=== PATIENT | male | born 1935 | race Caucasian/White ===

== ENCOUNTER → 2017-04-10 | Outpatient (CLI) | payer MEDICARE ==
[2017-04-10 08:41] LABS: ALT 26 U/L (21-72); AST 23 U/L (17-59); Alkaline Phosphatase 40 U/L (38-126); Anion Gap 9 mmol/L; Blood Urea Nitrogen 30 mg/dL (9-20); Carbon Dioxide 24 mmol/L (22-30); Chloride 105 mmol/L (98-107); Glucose 112 mg/dL (74-99); Non-African American GFR(MDRD) 50 (>60 ml/min/1.73 sqM); Potassium 4.6 mmol/L (3.5-5.1); Sodium 138 mmol/L (137-145); Total Bilirubin 0.6 mg/dL (0.2-1.3); Total Protein 6.9 g/dL (6.3-8.2)
[2017-04-10 08:44] LABS: Basophils # (A) 0.1 k/uL (0-0.2); Basophils % (A) 1 %; CH 34.3; CHCM 34.8; Eosinophils # (A) 0.1 k/uL (0-0.7); Eosinophils % (A) 1 %; HCT 35.8 % (39.0-53.0); HDW 2.36; HGB 12.4 gm/dL (13.0-17.5); Luc # (Auto) 0.21; Luc % (Auto) 4; Lymphocytes # (A) 1.3 k/uL (1.0-4.8); Lymphocytes % (A) 27 %; MCH 34.4 pg (25.0-35.0); MCHC 34.7 g/dL (31.0-37.0); MCV 99.1 fL (80.0-100.0); Monocytes # (A) 0.5 k/uL (0-1.0); Monocytes % (A) 9 %; Neutrophils # (A) 2.9 k/uL (1.3-7.7); Neutrophils % (A) 58 %; RBC 3.61 m/uL (4.30-5.90); RDW 14.5 % (11.5-15.5); WBC (Perox) 5.04
== END | disposition home or self-care (01) ==
LOC: LABWHC1 07:46
PROVIDERS: ATTEND Psychiatry & Neurology Neurology
DX: D32.1 Benign neoplasm of spinal meninges (principal); E78.5 Hyperlipidemia, unspecified; G70.00 Myasthenia gravis without (acute) exacerbation; I10 Essential (primary) hypertension
CPT/HCPCS: 36415; 80053; 85025

== ENCOUNTER → 2017-04-22 | Outpatient (CLI) | payer MEDICARE ==
--- NOTE | 2017-04-22 19:37 | MR ---
Thoracic spine MRI with and without contrast HISTORY: Back pain, difficulty walking Multiplanar multisequence and postcontrast images through the thoracic spine following 20 cc MultiHan ce IV Correlation CT chest 12 February 2010 Thoracic vertebral bodies show preserved height, alignment. There is multilevel spondylosis with mini mal endplate discogenic marrow signal change, loss of disc height and signal at the intervertebral le vels is predominantly within the midthoracic spine. Hemangioma is present within the second thoracic vertebral body. Degenerative disc changes also noted in the cervical spine. Thoracic cord signal is i ncreased and T2-weighted sequences at the T10 level. T10-11 shows hypertrophic change of the facets with resulting in lateral recess encroachment, moderat e to severe central canal stenosis. Bilateral foraminal encroachment is present. No evident disc ronny iation. T9-T10 show some mild facet arthropathy encroaching on the right lateral recess. No significant centr al stenosis. T11-12 shows hypertrophic change of the facets causing some mass effect in the posterior lateral aspe ct of the thecal sac greater on the right. No other significant central canal stenosis or foraminal encroachment, no sizable disc herniation. 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 There is mod erate to severe canal stenosis.
== END | disposition home or self-care (01) ==
LOC: RADMRIMAIN 17:40
PROVIDERS: ATTEND Psychiatry & Neurology Neurology
DX: M48.04 Spinal stenosis, thoracic region (principal); G70.00 Myasthenia gravis without (acute) exacerbation; G95.9 Disease of spinal cord, unspecified; I10 Essential (primary) hypertension; G51.0 Bell's palsy; E78.5 Hyperlipidemia, unspecified
CPT/HCPCS: 72157; A9577

== ENCOUNTER 2021-01-18 22:35 | Observation (INO) | payer MEDICARE ==
[2021-01-18 22:47] LABS: Glucose,Whole Blood 198 mg/dL (75-99)
[2021-01-18] MEDS ORDERED: SODIUM CHLORIDE 0.9% 500 ML 500 ML IV STA ×2 (22:59→23:57)
[2021-01-18 23:37] LABS: Basophils % (A) 0 %; Eosinophils % (A) 0 %; HGB 12.9 gm/dL (13.0-17.5); Lymphocytes # (A) 0.8 k/uL (1.0-4.8); Lymphocytes % (A) 5 %; MCH 32.7 pg (25.0-35.0); MCHC 33.2 g/dL (31.0-37.0); MCV 98.5 fL (80.0-100.0); Mean Platelet Volume 7.6; Monocytes # (A) 0.6 k/uL (0-1.0); Monocytes % (A) 4 %; Neutrophils % (A) 90 %; Platelet Count 248 k/uL (150-450); RBC 3.96 m/uL (4.30-5.90); RDW 13.3 % (11.5-15.5); WBC 15.6 k/uL (3.8-10.6)
[2021-01-18 23:49] LABS: ALT 22 U/L (4-49); AST 27 U/L (17-59); African American GFR (CKD) 23 (>60 ml/min/1.73 sqM); Albumin 4.4 g/dL (3.5-5.0); Alcohol <10 mg/dL; Alkaline Phosphatase 68 U/L (38-126); Anion Gap 12 mmol/L; Blood Urea Nitrogen 42 mg/dL (9-20); Calcium 9.5 mg/dL (8.4-10.2); Carbon Dioxide 20 mmol/L (22-30); Chloride 104 mmol/L (98-107); Glucose 187 mg/dL (74-99); Non-African American GFR(CKD) 20 (>60 ml/min/1.73 sqM); Potassium 4.7 mmol/L (3.5-5.1); Sodium 136 mmol/L (137-145); Total Bilirubin 0.4 mg/dL (0.2-1.3); Total Protein 7.7 g/dL (6.3-8.2)
--- NOTE | 2021-01-18 23:49 | ED ---
Seizure HPI - General Chief Complaint: Seizure Stated Complaint: Seizures Time Seen by Provider: 01/18/21 22:37 Source: patient Mode of arrival: ambulatory Limitations: altered mental status - History of Present Illness Initial Comments: This patient is an 85-year-old man brought to have evaluation for suspected seizure. The patient is not able to give any history on arrival, though he is conscious. Patient's son and report that he has been having episodes like this going back possibly up to 3 months. Tonight they report that he had gone to use the bathroom and then while sitting on the commode he had become unresponsive. He did not fall or have any trauma. They state that afterwards he is not able to communicate for a period of time. His initial workup for this problem was at [facility]. They do report that he is scheduled to have MRI through [facility] January 22. Patient is able to answer some simple yes or no questions. He is not having any pain or dyspnea. MD Complaint: seizure -: minutes(s) Description of Episode: loss of consciousness, post-event confusion -: second(s) Witnessed: yes - by bystander Trauma: No Seizure History: known seizure disorder Place: home Possible Precipitating Event: none Associated Symptoms: denies other symptoms Treatments Prior to Arrival: none - Related Data Home Medications Medication Instructions Recorded Confirmed Donepezil [Aricept] 10 mg PO HS 01/19/21 01/19/21 Pyridostigmine [Mestinon] 30 mg PO TID 01/19/21 01/19/21 QUEtiapine [SEROquel] 50 mg PO HS 01/19/21 01/19/21 Triamterene-Hctz 37.5-25Mg 1 tab PO DAILY 01/19/21 01/19/21 [Maxzide 37.5-25] amLODIPine [Norvasc] 5 mg PO BID 01/19/21 01/19/21 azaTHIOprine [Imuran] 50 mg PO BID 01/19/21 01/19/21 Previous Rx's Medication Instructions Recorded Acetaminophen Tab [Tylenol] 650 mg PO Q6HR PRN tab 01/22/21 levETIRAcetam [Keppra] 500 mg PO Q12HR #60 tab 01/22/21 Allergies Allergy/AdvReac Type Severity Reaction Status Date / Time No Known Allergies Allergy Verified 01/19/21 08:56 Review of Systems ROS Statement: Those systems with pertinent positive or pertinent negative responses have been documented in the HPI. ROS Other: All systems not noted in ROS Statement are negative. 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 Absent: scleral icterus, conjunctival injection, nystagmus ENT exam: Present: mucous membranes dry Neck exam: Present: normal inspection, full ROM. Absent: tenderness, meningismus Respiratory exam: Present: normal lung sounds bilaterally. Absent: respiratory distress, wheezes, rales, rhonchi, stridor Cardiovascular Exam: Present: regular rate, normal rhythm, normal heart sounds. Absent: systolic murmur, diastolic murmur, rubs, gallop GI/Abdominal exam: Present: soft. Absent: distended, tenderness, guarding, rebound, rigid, mass Extremities exam: Present: normal inspection, normal capillary refill. Absent: pedal edema, calf tenderness Back exam: Present: normal inspection. Absent: CVA tenderness (R), CVA tenderness (L) Neurological exam: Present: alert, CN II-XII intact, other (Patient initially is alert but oriented only to person. He is able to follow very simple commands and answer yes no questions. The exam at this point consistent with post ictal state. No focal motor or sensory deficit.). Absent: oriented X3, motor sensory deficit Skin exam: Present: warm, dry, intact, normal color. Absent: rash Course Vital Signs 01/18/21 01/18/21 01/19/21 22:52 23:55 01:50 Temperature 97.4 F L 98.2 F Pulse Rate 70 68 Respiratory 18 16 Rate Blood Pressure 99/70 98/80 129/79 O2 Sat by Pulse 98 98 Oximetry 01/19/21 02:30 Temperature 98.0 F Pulse Rate 67 Respiratory 16 Rate Blood Pressure 126/81 O2 Sat by Pulse 97 Oximetry Medical Decision Making - Medical Decision Making Patient is an 85-year-old man brought for having suspected seizure at home. On arrival he does appear to be post ictal. When I did return to discuss the lab findings, the patient is alert and able to communicate. Case is discussed with Dr. Sexton, who is covering for the group [facility] and will admit. The patient is given fluids and antibiotics, and we did want to check catheterized urine specimen, the patient was refusing this. - Lab Data Result diagrams: 01/22/21 05:49 01/22/21 05:49 Lab Results 01/18/21 01/18/21 01/18/21 Range/Units 22:46 23:21 23:21 WBC 15.6 H (3.8-10.6) k/uL RBC 3.96 L (4.30-5.90) m/uL Hgb 12.9 L (13.0-17.5) gm/dL Hct 39.0 (39.0-53.0) % MCV 98.5 (80.0-100.0) fL MCH 32.7 (25.0-35.0) pg MCHC 33.2 (31.0-37.0) g/dL RDW 13.3 (11.5-15.5) % Plt Count 248 (150-450) k/uL Plt Count Comment MPV 7.6 Immature Gran % (Auto) % Absolute Nucleated RBC (0.00-0.00) X 10*3/uL Neutrophils % 90 % Lymphocytes % 5 % Monocytes % 4 % Eosinophils % 0 % Basophils % 0 % Immature Gran # (0.00-0.04) X 10*3/uL Neutrophils # 14.0 H (1.3-7.7) k/uL Lymphocytes # 0.8 L (1.0-4.8) k/uL Monocytes # 0.6 (0-1.0) k/uL Eosinophils # 0.0 (0-0.7) k/uL Basophils # 0.0 (0-0.2) k/uL NRBC/100 WBC Diff (0.0-0.0) /100 WBCS RBC Morphology Sodium 136 L (137-145) mmol/L Potassium 4.7 (3.5-5.1) mmol/L Chloride 104 (98-107) mmol/L Carbon Dioxide 20 L (22-30) mmol/L Anion Gap 12 mmol/L BUN 42 H (9-20) mg/dL Creatinine 2.79 H (0.66-1.25) mg/dL Est GFR (CKD-EPI)AfAm 23 (>60 ml/min/1.73 sqM) Est GFR (CKD-EPI)NonAf 20 (>60 ml/min/1.73 sqM) BUN/Creatinine Ratio (12.00-20.00) Ratio Glucose 187 H (74-99) mg/dL POC Glucose (mg/dL) 198 H (75-99) mg/dL POC Glu Group Therapy Counselor ID [place] Lactic Ac Sepsis Rflx Plasma Lactic Acid Fredi (0.7-2.0) mmol/L Calcium 9.5 (8.4-10.2) mg/dL Magnesium (1.6-2.3) mg/dL Total Bilirubin 0.4 (0.2-1.3) mg/dL AST 27 (17-59) U/L ALT 22 (4-49) U/L Alkaline Phosphatase 68 (38-126) U/L Creatine Kinase (55-170) U/L Troponin I (0.000-0.034) ng/mL Total Protein 7.7 (6.3-8.2) g/dL Albumin 4.4 (3.5-5.0) g/dL Globulin g/dL Albumin/Globulin Ratio Vitamin B12 (200.0-944.0) pg/mL RBC Folate (280 - 791) ng/mL TSH (0.465-4.680) mIU/L Urine Color Urine Appearance (Clear) Urine pH (5.0-8.0) Ur Specific [place] (1.001-1.035) Urine Protein (Negative) Urine Glucose (UA) (Negative) Urine Ketones (Negative) Urine Blood (Negative) Urine Nitrite (Negative) Urine Bilirubin (Negative) Urine Urobilinogen (<2.0) mg/dL Ur Leukocyte Esterase (Negative) Urine RBC (0-5) /hpf Urine WBC (0-5) /hpf Ur Squamous Epith Cells (0-4) /hpf Urine Bacteria (None) /hpf Urine Mucus (None) /hpf Random Vancomycin ug/mL Serum Alcohol <10 mg/dL Coronavirus (PCR) (Not Detectd) 02/18/21 02/18/21 02/18/21 Range/Units 23:21 23:21 23:57 WBC (3.8-10.6) k/uL RBC (4.30-5.90) m/uL Hgb (13.0-17.5) gm/dL Hct (39.0-53.0) % MCV (80.0-100.0) fL MCH (25.0-35.0) pg MCHC (31.0-37.0) g/dL RDW (11.5-15.5) % Plt Count (150-450) k/uL Plt Count Comment MPV Immature Gran % (Auto) % Absolute Nucleated RBC (0.00-0.00) X 10*3/uL Neutrophils % % Lymphocytes % % Monocytes % % Eosinophils % % Basophils % % Immature Gran # (0.00-0.04) X 10*3/uL Neutrophils # (1.3-7.7) k/uL Lymphocytes # (1.0-4.8) k/uL Monocytes # (0-1.0) k/uL Eosinophils # (0-0.7) k/uL Basophils # (0-0.2) k/uL NRBC/100 WBC Diff (0.0-0.0) /100 WBCS RBC Morphology Sodium (137-145) mmol/L Potassium (3.5-5.1) mmol/L Chloride (98-107) mmol/L Carbon Dioxide (22-30) mmol/L Anion Gap mmol/L BUN (9-20) mg/dL Creatinine (0.66-1.25) mg/dL Est GFR (CKD-EPI)AfAm (>60 ml/min/1.73 sqM) Est GFR (CKD-EPI)NonAf (>60 ml/min/1.73 sqM) BUN/Creatinine Ratio (12.00-20.00) Ratio Glucose (74-99) mg/dL POC Glucose (mg/dL) (75-99) mg/dL POC Glu Group Therapy Counselor ID Lactic Ac Sepsis Rflx Y Plasma Lactic Acid Fredi 4.0 H* (0.7-2.0) mmol/L Calcium (8.4-10.2) mg/dL Magnesium (1.6-2.3) mg/dL Total Bilirubin (0.2-1.3) mg/dL AST (17-59) U/L ALT (4-49) U/L Alkaline Phosphatase (38-126) U/L Creatine Kinase (55-170) U/L Troponin I <0.012 (0.000-0.034) ng/mL Total Protein (6.3-8.2) g/dL Albumin (3.5-5.0) g/dL Globulin g/dL Albumin/Globulin Ratio Vitamin B12 (200.0-944.0) pg/mL RBC Folate (280 - 791) ng/mL TSH (0.465-4.680) mIU/L Urine Color Urine Appearance (Clear) Urine pH (5.0-8.0) Ur Specific [place] (1.001-1.035) Urine Protein (Negative) Urine Glucose (UA) (Negative) Urine Ketones (Negative) Urine Blood (Negative) Urine Nitrite (Negative) Urine Bilirubin (Negative) Urine Urobilinogen (<2.0) mg/dL Ur Leukocyte Esterase (Negative) Urine RBC (0-5) /hpf Urine WBC (0-5) /hpf Ur Squamous Epith Cells (0-4) /hpf Urine Bacteria (None) /hpf Urine Mucus (None) /hpf Random Vancomycin ug/mL Serum Alcohol mg/dL Coronavirus (PCR) (Not Detectd) 01/19/21 01/19/21 01/19/21 Range/Units 02:05 03:45 10:51 WBC (3.8-10.6) k/uL RBC (4.30-5.90) m/uL Hgb (13.0-17.5) gm/dL Hct (39.0-53.0) % MCV (80.0-100.0) fL MCH (25.0-35.0) pg MCHC (31.0-37.0) g/dL RDW (11.5-15.5) % Plt Count (150-450) k/uL Plt Count Comment MPV Immature Gran % (Auto) % Absolute Nucleated RBC (0.00-0.00) X 10*3/uL Neutrophils % % Lymphocytes % % Monocytes % % Eosinophils % % Basophils % % Immature Gran # (0.00-0.04) X 10*3/uL Neutrophils # (1.3-7.7) k/uL Lymphocytes # (1.0-4.8) k/uL Monocytes # (0-1.0) k/uL Eosinophils # (0-0.7) k/uL Basophils # (0-0.2) k/uL NRBC/100 WBC Diff (0.0-0.0) /100 WBCS RBC Morphology Sodium 135 L (137-145) mmol/L Potassium 4.9 (3.5-5.1) mmol/L Chloride 105 (98-107) mmol/L Carbon Dioxide 22 (22-30) mmol/L Anion Gap 8 mmol/L BUN 47 H (9-20) mg/dL Creatinine 2.75 H (0.66-1.25) mg/dL Est GFR (CKD-EPI)AfAm 23 (>60 ml/min/1.73 sqM) Est GFR (CKD-EPI)NonAf 20 (>60 ml/min/1.73 sqM) BUN/Creatinine Ratio (12.00-20.00) Ratio Glucose 118 H (74-99) mg/dL POC Glucose (mg/dL) (75-99) mg/dL POC Glu Group Therapy Counselor ID Lactic Ac Sepsis Rflx Plasma Lactic Acid Fredi 1.3 (0.7-2.0) mmol/L Calcium 8.8 (8.4-10.2) mg/dL Magnesium 2.1 (1.6-2.3) mg/dL Total Bilirubin (0.2-1.3) mg/dL AST (17-59) U/L ALT (4-49) U/L Alkaline Phosphatase (38-126) U/L Creatine Kinase 273 H (55-170) U/L Troponin I (0.000-0.034) ng/mL Total Protein (6.3-8.2) g/dL Albumin (3.5-5.0) g/dL Globulin g/dL Albumin/Globulin Ratio Vitamin B12 716.0 (200.0-944.0) pg/mL RBC Folate (280 - 791) ng/mL TSH 2.070 (0.465-4.680) mIU/L Urine Color Urine Appearance (Clear) Urine pH (5.0-8.0) Ur Specific [place] (1.001-1.035) Urine Protein (Negative) Urine Glucose (UA) (Negative) Urine Ketones (Negative) Urine Blood (Negative) Urine Nitrite (Negative) Urine Bilirubin (Negative) Urine Urobilinogen (<2.0) mg/dL Ur Leukocyte Esterase (Negative) Urine RBC (0-5) /hpf Urine WBC (0-5) /hpf Ur Squamous Epith Cells (0-4) /hpf Urine Bacteria (None) /hpf Urine Mucus (None) /hpf Random Vancomycin ug/mL Serum Alcohol mg/dL Coronavirus (PCR) Not Detected (Not Detectd) 01/19/21 01/19/21 01/20/21 Range/Units 10:51 11:52 06:50 WBC (3.8-10.6) k/uL RBC (4.30-5.90) m/uL Hgb (13.0-17.5) gm/dL Hct (39.0-53.0) % MCV (80.0-100.0) fL MCH (25.0-35.0) pg MCHC (31.0-37.0) g/dL RDW (11.5-15.5) % Plt Count (150-450) k/uL Plt Count Comment MPV Immature Gran % (Auto) % Absolute Nucleated RBC (0.00-0.00) X 10*3/uL Neutrophils % % Lymphocytes % % Monocytes % % Eosinophils % % Basophils % % Immature Gran # (0.00-0.04) X 10*3/uL Neutrophils # (1.3-7.7) k/uL Lymphocytes # (1.0-4.8) k/uL Monocytes # (0-1.0) k/uL Eosinophils # (0-0.7) k/uL Basophils # (0-0.2) k/uL NRBC/100 WBC Diff (0.0-0.0) /100 WBCS RBC Morphology Sodium 140 (137-145) mmol/L Potassium 3.9 (3.5-5.1) mmol/L Chloride 107 (98-107) mmol/L Carbon Dioxide 23.2 (22-30) mmol/L Anion Gap 9.80 mmol/L BUN 49.0 H (9-20) mg/dL Creatinine 2.6 H (0.66-1.25) mg/dL Est GFR (CKD-EPI)AfAm 25.1 L (>60 ml/min/1.73 sqM) Est GFR (CKD-EPI)NonAf 21.7 L (>60 ml/min/1.73 sqM) BUN/Creatinine Ratio 18.85 (12.00-20.00) Ratio Glucose 93 (74-99) mg/dL POC Glucose (mg/dL) (75-99) mg/dL POC Glu Group Therapy Counselor ID Lactic Ac Sepsis Rflx Plasma Lactic Acid Fredi (0.7-2.0) mmol/L Calcium 8.3 L (8.4-10.2) mg/dL Magnesium 2.1 (1.6-2.3) mg/dL Total Bilirubin (0.2-1.3) mg/dL AST (17-59) U/L ALT (4-49) U/L Alkaline Phosphatase (38-126) U/L Creatine Kinase (55-170) U/L Troponin I (0.000-0.034) ng/mL Total Protein (6.3-8.2) g/dL Albumin (3.5-5.0) g/dL Globulin g/dL Albumin/Globulin Ratio Vitamin B12 (200.0-944.0) pg/mL RBC Folate 1,031 H (280 - 791) ng/mL TSH (0.465-4.680) mIU/L Urine Color Yellow Urine Appearance Cloudy (Clear) Urine pH 5.0 (5.0-8.0) Ur Specific [place] 1.020 (1.001-1.035) Urine Protein 1+ H (Negative) Urine Glucose (UA) Negative (Negative) Urine Ketones Negative (Negative) Urine Blood Negative (Negative) Urine Nitrite Negative (Negative) Urine Bilirubin Negative (Negative) Urine Urobilinogen <2.0 (<2.0) mg/dL Ur Leukocyte Esterase Negative (Negative) Urine RBC 2 (0-5) /hpf Urine WBC 1 (0-5) /hpf Ur Squamous Epith Cells 1 (0-4) /hpf Urine Bacteria Rare H (None) /hpf Urine Mucus Rare H (None) /hpf Random Vancomycin ug/mL Serum Alcohol mg/dL Coronavirus (PCR) (Not Detectd) 01/20/21 01/20/21 Range/Units 06:50 06:50 WBC 11.93 H (3.8-10.6) k/uL RBC 3.26 L (4.30-5.90) m/uL Hgb 10.8 L (13.0-17.5) gm/dL Hct 31.9 L (39.0-53.0) % MCV 97.9 H (80.0-100.0) fL MCH 33.1 H (25.0-35.0) pg MCHC 33.9 (31.0-37.0) g/dL RDW 13.5 (11.5-15.5) % Plt Count 183 (150-450) k/uL Plt Count Comment Adequate MPV 10.1 Immature Gran % (Auto) 0.5 % Absolute Nucleated RBC 0 (0.00-0.00) X 10*3/uL Neutrophils % 80.3 % Lymphocytes % 8.0 % Monocytes % 10.7 % Eosinophils % 0.2 % Basophils % 0.3 % Immature Gran # 0.06 H (0.00-0.04) X 10*3/uL Neutrophils # 9.57 H (1.3-7.7) k/uL Lymphocytes # 0.96 (1.0-4.8) k/uL Monocytes # 1.28 H (0-1.0) k/uL Eosinophils # 0.02 L (0-0.7) k/uL Basophils # 0.04 (0-0.2) k/uL NRBC/100 WBC Diff 0 (0.0-0.0) /100 WBCS RBC Morphology NORMAL Sodium 137 (137-145) mmol/L Potassium 4.2 (3.5-5.1) mmol/L Chloride 109 H (98-107) mmol/L Carbon Dioxide 19 L (22-30) mmol/L Anion Gap 9 mmol/L BUN 49 H (9-20) mg/dL Creatinine 2.59 H (0.66-1.25) mg/dL Est GFR (CKD-EPI)AfAm 25 (>60 ml/min/1.73 sqM) Est GFR (CKD-EPI)NonAf 22 (>60 ml/min/1.73 sqM) BUN/Creatinine Ratio (12.00-20.00) Ratio Glucose 89 (74-99) mg/dL POC Glucose (mg/dL) (75-99) mg/dL POC Glu Group Therapy Counselor ID Lactic Ac Sepsis Rflx Plasma Lactic Acid Fredi (0.7-2.0) mmol/L Calcium 8.6 (8.4-10.2) mg/dL Magnesium (1.6-2.3) mg/dL Total Bilirubin 0.8 (0.2-1.3) mg/dL AST 42 (17-59) U/L ALT 17 (4-49) U/L Alkaline Phosphatase 52 (38-126) U/L Creatine Kinase (55-170) U/L Troponin I (0.000-0.034) ng/mL Total Protein 6.5 (6.3-8.2) g/dL Albumin 3.6 (3.5-5.0) g/dL Globulin 2.9 g/dL Albumin/Globulin Ratio 1.2 Vitamin B12 (200.0-944.0) pg/mL RBC Folate (280 - 791) ng/mL TSH (0.465-4.680) mIU/L Urine Color Urine Appearance (Clear) Urine pH (5.0-8.0) Ur Specific [place] (1.001-1.035) Urine Protein (Negative) Urine Glucose (UA) (Negative) Urine Ketones (Negative) Urine Blood (Negative) Urine Nitrite (Negative) Urine Bilirubin (Negative) Urine Urobilinogen (<2.0) mg/dL Ur Leukocyte Esterase (Negative) Urine RBC (0-5) /hpf Urine WBC (0-5) /hpf Ur Squamous Epith Cells (0-4) /hpf Urine Bacteria (None) /hpf Urine Mucus (None) /hpf Random Vancomycin 11.7 ug/mL Serum Alcohol mg/dL Coronavirus (PCR) (Not Detectd) - EKG Data -: EKG Interpreted by Me EKG shows normal: intervals, QRS complexes Rate: tachycardia Interpretation: nonspecific ST-T wave changes, other Disposition Clinical Impression: Seizure, Acute kidney injury, Lactic acidosis Disposition: ADMITTED IP TO THIS HOSP Condition: Poor
[2021-01-18] MEDS ORDERED: SODIUM CHLORIDE 0.9% 1,000 ML IV ONE (23:57)
[2021-01-18] MEDS ORDERED: SODIUM CHLORIDE 0.9% 1,000 ML IV STA (23:57)
--- NOTE | 2021-01-19 00:11 | CT ---
EXAMINATION TYPE: CT brain wo con DATE OF EXAM: 01/19/2021 COMPARISON: 01/15/2014 HISTORY: seizure CT DLP: 1086.4 mGycm Automated exposure control for dose reduction was used. There is some cerebral atrophy. There is hypodensity in the white matter of the right parietal lobe a nd both occipital lobes. There is also some 1.5 cm hypodensity anterior right internal capsule. There is no mass effect nor midline shift. There is no sign of intracranial hemorrhage. The calvarium is i ntact. The skull base is intact. IMPRESSION: Cerebral atrophy. There is some chronic small vessel ischemia with progression compared to old exam.
--- NOTE | 2021-01-19 00:12 | XR ---
EXAMINATION TYPE: XR chest 1V portable DATE OF EXAM: 01/18/2021 COMPARISON: 01/15/2014 HISTORY: Fall. Weakness. TECHNIQUE: Single view FINDINGS: There is poor inspiration. There is elevated left diaphragm. There is no heart failure. The re is no pleural effusion. There are no hilar masses. There are chest leads. IMPRESSION: Inspiration decreased compared to old exam. No heart failure seen. Mild atelectasis at th e lung bases.
[2021-01-19] MEDS ORDERED: NALOXONE 0.4 MG/ML 1 ML VIAL IV PRN (01:37)
--- NOTE | 2021-01-19 08:39 | P.CNNES ---
History of Present Illness Consult date: 01/19/21 Requesting physician: Arley Rothman Reason for Consult: seizure History of Present Illness: This is an 85-year-old gentleman with medical history of seizure, dementia, that presented to the emergency department on 01/18/2021 possible seizure. History is obtained from the medical record. History is obtained from medical records since patient is unable to provide that. It is mentioned in the ED note that the patient was in the bathroom and he was sitting using a commode then he became unresponsiveness. He did not fall or head any trauma. Afterwards he was not communicating for a period of time. It is not mentioned for how long this episode lasted for. The patient's son and the reported to the ED that this episode goes back possibly up to 3 month. Patient had workup at [facility] and the he was scheduled to get MRI to [facility] on January 22 of this year. In the ED the patient was answering some questions yes and no. In the ED note in the past medical history it states that the patient has history of dementia as well seizure. I'm not sure if the patient truly does have history of seizures or not and for how long. Per the patient nurse and she stated that the patient the stated earlier today that the he was in the hospital initially he said the was a different hospital than later he said it's the [facility]. Upon seeing him he was unable to provide past medical history but he is awake alert and responding. Upon checking the patient's medication not sure if the patient is on seizure medication or not but it seems that the patient is on memantine 10mg daily, pyridostigmine 60mg and not sure if that if he has diagnosis of myasthenia gravis or not. Another medication he is on is Seroquel. Workup in the hospital consisted of: On presentation the patient initial vitals his blood pressure of 99/70, heart rate of 70, respiratory of 18, temperature of 97.4 Fahrenheit oral and pulse ox of 98% room air. Patient has been afebrile sso far. CT of the head is reported as cerebral atrophy. There is some chronic small vessel ischemia with progression compared to old exam. EKG is reported as undetermined rhythm. Pulmonary disease pattern. Left anterior fascicular block. Nonspecific ST abnormality. Abnormal EKG. On presentation the patient will blood cell is 15.6 and it's predominantly neutrophilic. Initial sodium is 136. The BUN is 42 and a creatinine is 2.79. The serum glucose is 187 and the POC glucose is 198 at. The plasma lactic acid vein is 4.0. The calcium is 9.5. Serum alcohol is less than 10. Dejesus virus PCR was not detected. Of note patient had MRI the thoracic spine on 04/22/2017 and was reported as spinal stenosis is noted at T10 and 11, there is likely gliosis within the cord. There is moderate to severe canal stenosis Review of Systems Review of system is limited and apparent positive and negative aspiration HPI. Past Medical History Past Medical History: Dementia, Seizure Disorder Additional Past Medical History / Comment(s): tumor on back History of Any Multi-Drug Resistant Organisms: None Reported Past Surgical History: No Surgical Hx Reported Past Anesthesia/Blood Transfusion Reactions: No Reported Reaction Past Psychological History: No Psychological Hx Reported Smoking Status: Never smoker Past Alcohol Use History: None Reported Past Drug Use History: None Reported Medications and Allergies Home Medications Medication Instructions Recorded Confirmed Type Donepezil [Aricept] 10 mg PO HS 01/19/21 01/19/21 History Pyridostigmine [Mestinon] 30 mg PO TID 01/19/21 01/19/21 History QUEtiapine [SEROquel] 50 mg PO HS 01/19/21 01/19/21 History Triamterene-Hctz 37.5-25Mg 1 tab PO DAILY 01/19/21 01/19/21 History [Maxzide 37.5-25] amLODIPine [Norvasc] 5 mg PO BID 01/19/21 01/19/21 History azaTHIOprine [Imuran] 50 mg PO BID 01/19/21 01/19/21 History Allergies Allergy/AdvReac Type Severity Reaction Status Date / Time No Known Allergies Allergy Verified 01/19/21 08:56 Physical Examination - Vital Signs Vital Signs: Vital Signs Temp Pulse Pulse Resp BP BP Pulse Ox 01/19/21 04:49 97.5 F L 67 16 128/65 98 01/19/21 03:21 98.5 F 71 18 121/64 99 01/19/21 03:20 16 01/19/21 02:30 98.0 F 67 16 126/81 97 01/19/21 01:50 98.2 F 68 16 129/79 98 01/18/21 23:55 98/80 01/18/21 22:52 97.4 F L 70 18 99/70 98 Intake and Output 01/18/21 01/19/21 01/19/21 22:59 06:59 14:59 Other: Voiding Method Urinal Incontinent # Voids 2 # Bowel Movements 0 Weight 76.657 kg 76.657 kg GENERAL: The patient is lying in bed and is not in acute distress. CHEST: The heart rate is regular rate rhythm. No murmurs to auscultation. LUNG: Clear to auscultation bilaterally no wheezing noted throughout. Not labored breathing. ABDOMEN/GI: Bowel sounds present in all 4 quadrants. No tenderness to palpation throughout. NEUROLOGICAL: Higher mental function: The patient is awake, alert, oriented to self. He initially stated it was year 2001 then later stated it was year 2020. He said he was in [place] but stated he was in school. Patient is able to name objects correctly (pen, straw and spoon). Patient is following simple commands but seem there is delay. No aphasia from limited language. No neglect. Cranial nerves: The pupils are round, equal and reactive to light. Visual dong could not be assessed because of cooperation. Extraocular movement is intact no nystagmus is noted. It seems patient has exopthamolos on the right ey e. Facial sensation is normal to touch throughout. The facial strength is normal throughout. Hearing is moderated decreased bilaterally to hand rub. No dysarthria is noted. Rest of cranial nerves could not be assessed because of patient cooperation. Motor: Gait is deferred. The strength is moving all extremities above gravity without any drift or focality. I would say he had at least 4/5 throughout but hard to assess because of cooperation. Normal tone and bulk. Cerebellum: Normal finger to nose bilaterally. Sensation: Sensation is normal to touch throughout. Reflexes (right/left): brachioradialis are 3+ bilaterally, ankles are 1+, otherwise 2+ throughout. Plantars are downgoing bilaterally. Results - Laboratory Findings CBC and BMP: 01/18/21 23:21 01/19/21 10:51 Abnormal Lab Findings: Abnormal Labs 01/18/21 01/18/21 01/18/21 22:46 23:21 23:21 WBC 15.6 H RBC 3.96 L Hgb 12.9 L Neutrophils # 14.0 H Lymphocytes # 0.8 L Sodium 136 L Carbon Dioxide 20 L BUN 42 H Creatinine 2.79 H Glucose 187 H POC Glucose (mg/dL) 198 H Plasma Lactic Acid Fredi 01/18/21 23:21 WBC RBC Hgb Neutrophils # Lymphocytes # Sodium Carbon Dioxide BUN Creatinine Glucose POC Glucose (mg/dL) Plasma Lactic Acid Fredi 4.0 H* Assessment and Plan Assessment: This is an 85-year-old gentleman that presented to the emergency department on 01/18/2021 for suspected seizure. The patient was in the bathroom using a commode and then he became unresponsiveness. According to the family he's been having these episodes for the last 3 months and had workup at the [facility] and he was scheduled for MRI on 01/22/2021 Syncopal episode (for the past 3 month): This recent episode seemed possible vasovagal. Cannot rule out seizure. History of Seizure (according to ED medical history) but unsure if truly was diagnosed with seizure or not Thoracic spondylosis (T10 and T11 and likely gliosis on previous MRI thoracic on 04/22/2017) Dementia (not sure for how long and type of demenita he was diagnosed with) LISS on CKI Plan: I ordered a routine EEG. I started the patient prophylactically on Keppra 500 m g 1 tablet twice a day since it is reported that he has history of seizure. I ordered MRI the brain w/o. Cannot get MRI w/ and w/o because of creatnine function. I ordered orthostatic vitals. I ordered 2-D echo Continue cardiac monitoring Urinalysis and CK level I ordered and are pending. Will try to find out why the patient is on Pyridostigmine and whether he truly has history of seizures or not and whether he followed-up with neurologist as outpatient. I ordered TSH, vitamin B12, folate level. I recommend cardiology consultation. Patient was started on ceftriaxone in the ED. Nephrology team was consulted. Will defer the rest of medical management to the primary team. The plan is discussed with the patient's nurse. Thank you for the consultation. UPDATE: -Per the patient's nurse he had an EEG on 01/15/2021 at [facility] (since of syncopal episodes) and it is reported as abnormal EEG due to showed encephalopathy due to metabolic. There are no focal slowing, perform discharges or seizure in the EEG. Per the patient nurse does not mention the degree of encephalopathy. -Was notified that the patient cannot get MRI since the patient has a Green filter and he needs a 1.5 Lillian rather than a 3 Lillian. Claude Garcia M.D. Neuro-hospitalist Time with Patient: Greater than 30
--- NOTE | 2021-01-19 10:05 | P.NPCON ---
History of Present Illness - Reason for Consult acute renal failure - History of Present Illness Reason for consultation: Acute kidney injury History of present illness: Patient is a 85-year-old male seen in renal consultation for acute kidney injury. Patient's creatinine on admission yesterday was 2.79. Patient's creatinine as of 04/10/2017 was 1.38. No other records available. He has not seen us in the office. Patient presented to the hospital due to concern for seizures. Patient is currently awake. Patient doesn't provide much history and history was obtained mostly from the chart. It appears that patient's been having episodes of shaking and unresponsiveness over the last 3 months. He became unresponsive while sitting on the commode yesterday. He has been worked up at [facility] in the past. He is being followed by neurology and has been started on Keppra. 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 He was taking amlodipine as well as Maxide at home which are both currently held. Patient received 2 L of normal saline bolus in the ER and is currently maintained on normal saline at 130 mL an hour. Has been voiding. No hematuria or dysuria. Bladder scan this morning revealed no evidence of urinary retention. No vomiting or diarrhea. Lactic acid was 4 on admission and repeat 1.3. Vital signs are stable. General: The patient appeared well nourished and normally developed. HEENT: Head exam is unremarkable. Neck is without jugular venous distension. LUNGS: Breath sounds decreased. HEART: Rate and Rhythm are regular. ABDOMEN: Soft, nontender. EXTREMITITES: Trace edema. Past Medical History Past Medical History: Dementia, Seizure Disorder Additional Past Medical History / Comment(s): tumor on back History of Any Multi-Drug Resistant Organisms: None Reported Past Surgical History: No Surgical Hx Reported Past Anesthesia/Blood Transfusion Reactions: No Reported Reaction Past Psychological History: No Psychological Hx Reported Smoking Status: Never smoker Past Alcohol Use History: None Reported Past Drug Use History: None Reported Medications and Allergies Home Medications Medication Instructions Recorded Confirmed Type Donepezil [Aricept] 10 mg PO HS 01/19/21 01/19/21 History Pyridostigmine [Mestinon] 30 mg PO TID 01/19/21 01/19/21 History QUEtiapine [SEROquel] 50 mg PO HS 01/19/21 01/19/21 History Triamterene-Hctz 37.5-25Mg 1 tab PO DAILY 01/19/21 01/19/21 History [Maxzide 37.5-25] amLODIPine [Norvasc] 5 mg PO BID 01/19/21 01/19/21 History azaTHIOprine [Imuran] 50 mg PO BID 01/19/21 01/19/21 History Allergies Allergy/AdvReac Type Severity Reaction Status Date / Time No Known Allergies Allergy Verified 01/19/21 08:56 Physical Exam Vitals: Vital Signs Temp Pulse Pulse Resp BP BP Pulse Ox 01/19/21 09:26 85 01/19/21 09:18 98.1 F 85 16 112/67 98 01/19/21 04:49 97.5 F L 67 16 128/65 98 01/19/21 03:21 98.5 F 71 18 121/64 99 01/19/21 03:20 16 01/19/21 02:30 98.0 F 67 16 126/81 97 01/19/21 01:50 98.2 F 68 16 129/79 98 01/18/21 23:55 98/80 01/18/21 22:52 97.4 F L 70 18 99/70 98 Intake and Output 01/18/21 01/19/21 01/19/21 22:59 06:59 14:59 Other: Voiding Method Urinal Incontinent # Voids 2 # Bowel Movements 0 Weight 76.657 kg 76.657 kg Results - Lab Results Most recent lab results Calcium 9.5 mg/dL (8.4-10.2) 01/18/21 23:21 01/18/21 23:21 01/18/21 23:21 Assessment and Plan Plan: Assessment: 1. Acute kidney injury mostly prerenal secondary to hypotension and diuretics. Creatinine 2.79 admission. 2. Rule out chronic kidney disease. Patient's creatinine as of March 2017 was 1.38. 3. Benign hypertension. Currently controlled. 4. Possible seizures. Neurology following. Started on Keppra. 5. Metabolic acidosis secondary to acute kidney injury and lactic acidosis. Plan: Decrease rate of normal saline to 70 mL an hour. Check urinalysis. Check renal ultrasound. Monitor bladder scans to make sure no urinary retention. Avoid nephrotoxins. Check CK level. Follow-up echocardiogram and MRI brain. Morning labs pending. Thank you for the consultation. I will continue to follow the patient with you during his hospital stay.
[2021-01-19] MEDS: SODIUM CHLORIDE 0.9% 1,000 ML IV SCH (10:33)
--- NOTE | 2021-01-19 12:00 | ECHOF ---
Referral Reason:syncopal episode MEASUREMENTS -------- HEIGHT: 175.3 cm WEIGHT: 76.7 kg BP: 112/67 RVIDd: 3.3 cm (< 3.3) IVSd: 1.2 cm (0.6 - 1.1) LVIDd: 3.3 cm (3.9 - 5.3) LVPWd: 1.6 cm (0.6 - 1.1) IVSs: 1.8 cm LVIDs: 2.3 cm LVPWs: 1.6 cm LAESV Index (A-L): 35.06 ml/m Ao Diam: 3.3 cm (2.0 - 3.7) AV Cusp: 1.7 cm (1.5 - 2.6) MV EXCURSION: 15.856 mm (> 18.000) MV EF SLOPE: 70 mm/s (70 - 150) EPSS: 0.1 cm RAP: 5.00 mmHg RVSP: 30.91 mmHg FINDINGS -------- This was a technically difficult study with suboptimal views. The left ventricular size is normal. There is mild concentric left ventricular hypertrophy. Overa ll left ventricular systolic function is low-normal with, an EF between 50 - 55 %. The right ventricle is mildly enlarged. LA is moderately dilated 34-39 ml/m2 The right atrial size is normal. 5.0mg of Lumason was utilized for enhancement of images Interatrial and interventricular septum intact. The aortic valve was not well visualized. There is no evidence of aortic regurgitation. There is no evidence of aortic stenosis. No mitral regurgitation. Mild tricuspid regurgitation present. There is no evidence of pulmonary hypertension. The right v entricular systolic pressure, as measured by Doppler, is 30.91mmHg. The pulmonic valve was not well visualized. There is no pulmonic regurgitation present. The aortic root size is normal. IVC Not well visulized. There is no pericardial effusion. CONCLUSIONS -------- 1. The left ventricular size is normal. 2. There is mild concentric left ventricular hypertrophy. 3. Overall left ventricular systolic function is low-normal with, an EF between 50 - 55 %. 4. The right ventricle is mildly enlarged. 5. LA is moderately dilated 34-39 ml/m2 6. Mild tricuspid regurgitation present. GEOLOGICAL SPECIALIST: Rossi Roberts [facility]
[2021-01-19 12:21] LABS: African American GFR (CKD) 23 (>60 ml/min/1.73 sqM); Anion Gap 8 mmol/L; Blood Urea Nitrogen 47 mg/dL (9-20); Calcium 8.8 mg/dL (8.4-10.2); Carbon Dioxide 22 mmol/L (22-30); Chloride 105 mmol/L (98-107); Creatine Kinase 273 U/L (55-170); Glucose 118 mg/dL (74-99); Magnesium 2.1 mg/dL (1.6-2.3); Non-African American GFR(CKD) 20 (>60 ml/min/1.73 sqM); Potassium 4.9 mmol/L (3.5-5.1); Sodium 135 mmol/L (137-145)
[2021-01-19 12:21] LABS: Appearance,Urine Cloudy (Clear); Bacteria,Urine Rare /hpf; Bilirubin,Urine Negative (Negative); Blood,Urine Negative (Negative); Color,Urine Yellow; Glucose,Urine (UA) Negative (Negative); Ketones,Urine Negative (Negative); Leukocyte Esterase,Urine Negative (Negative); Mucus,Urine Rare /hpf; Nitrite,Urine Negative (Negative); Protein,Urine 1+ (Negative); RBC,Urine 2 /hpf (0-5); Squamous Epithelial Cell,Urine 1 /hpf (0-4); Urobilinogen,Urine <2.0 mg/dL (<2.0); WBC,Urine 1 /hpf (0-5)
[2021-01-19] MEDS: levETIRAcetam 500 MG TAB PO SCH ×2 (12:32→21:09)
[2021-01-19] MEDS ORDERED: VANCOMYCIN IV PER PHARMACY 1 EACH MISC MISCELLANE PRN (12:32)
[2021-01-19] MEDS ORDERED: VANCOMYCIN 1,500 MG in SODIUM CHLORIDE 0.9% 250 ML IVPB ONE (13:00)
--- NOTE | 2021-01-19 13:10 | US ---
EXAMINATION TYPE: US kidneys/renal and bladder DATE OF EXAM: 01/19/2021 COMPARISON: CT CLINICAL HISTORY: liss. LISS EXAM MEASUREMENTS: Right Kidney: 10.2 x 4.4 x 4.5 cm Left Kidney: 10.5 x 4.3 x 4.6 cm Right Kidney: No evidence of hydronephrosis or nephrolithiasis, difficult to visualize due to overlyi ng bowel gas Left Kidney: No evidence of hydronephrosis or nephrolithiasis, lower pole gassed out Bladder: Unable to visualize Mild renal cortical thinning bilaterally. Cortical medullary junction preserved IMPRESSION: No hydronephrosis or nephrolithiasis.
[2021-01-19] MEDS: PIPERACILLIN-TAZOBACTAM 3.375 GM in SODIUM CHLORIDE 0.9% 100 ML IVPB SCH (16:52)
[2021-01-19] MEDS: PYRIDOSTIGMINE 60 MG TAB PO SCH ×2 (16:52→21:10)
[2021-01-19] MEDS ORDERED: ONDANSETRON 4 MG/2 ML VIAL IVP PRN (17:45)
--- NOTE | 2021-01-19 17:45 | P.HPIM ---
History of Present Illness H&P Date: 01/19/21 85 years old male patient of Dr. Lr with past medical history of your body dementia, history of seizure, myasthenia gravis comes in with increased weakness and multiple falls for the past few days. According to the patient is getting more confused and unable to do his ADLs as the days go by. He uses a walker on every day basis but is noticeable more week. Patient was brought in as he became unresponsive while sitting on the commode. No seizure-like activity noted. Patient's and daughter are unable to lift patient or moving around the house as the episodes of unresponsiveness has increased over the past few days. She also notices that patient has not been eating or drinking much lately. Patient was diagnosed with myasthenia gravis in in 2013 at [facility] there patient apparently was also diagnosed with DVT and a Blacklick filter was also placed. Patient is currently not on any blood thinner. She was scheduled to have an MRI to [facility] on January 22. On evaluation today patient is unable to provide any history he seems distracted in the conversation and does not remember any incidence of falling. Earlier this morning patient was being transferred to the bedside commode to check orthostatics in the process patient will was found to be awake but not responding with his head propped backwards incident lasted 20 seconds and patient was noted to be significantly orthostatic. Patient received 3 L of IV fluid in the ER and IV fluids were continued at 125 mL per hour. Labs suggestive sodium 136 bicarb 20 BUN 42 creatinine 2.79 no baseline creatinine unknown lactic acid on admission for improved to 1.3 troponin [address] head was done to suggest hypertrophy and chronic small vessel ischemia with progression. EKG was undetermined rhythm with left anterior vascular block nonspecific T-wave abnormality. MRI of thoracic spine on March 2017 did show multiple sick moderate to severe canal stenosis with gliosis within the cord at the level of T10 to T11. Patient was seen by neurology and plan to do EEG to rule out seizures. MRI was ordered but could not be completed as patient has Karson filter. Nephrology saw the patient decrease her fluids to 70 mL per hour Review of Systems Could not be obtained due to mental status Past Medical History Past Medical History: Dementia, Seizure Disorder Additional Past Medical History / Comment(s): tumor on back, myasthenia gravis History of Any Multi-Drug Resistant Organisms: None Reported Past Surgical History: No Surgical Hx Reported Past Anesthesia/Blood Transfusion Reactions: No Reported Reaction Past Psychological History: No Psychological Hx Reported Smoking Status: Never smoker Past Alcohol Use History: None Reported Past Drug Use History: None Reported Medications and Allergies Home Medications Medication Instructions Recorded Confirmed Type Donepezil [Aricept] 10 mg PO HS 01/19/21 01/19/21 History Pyridostigmine [Mestinon] 30 mg PO TID 01/19/21 01/19/21 History QUEtiapine [SEROquel] 50 mg PO HS 01/19/21 01/19/21 History Triamterene-Hctz 37.5-25Mg 1 tab PO DAILY 01/19/21 01/19/21 History [Maxzide 37.5-25] amLODIPine [Norvasc] 5 mg PO BID 01/19/21 01/19/21 History azaTHIOprine [Imuran] 50 mg PO BID 01/19/21 01/19/21 History Allergies Allergy/AdvReac Type Severity Reaction Status Date / Time No Known Allergies Allergy Verified 01/19/21 08:56 Physical Exam Vitals: Vital Signs Temp Pulse Pulse Pulse Pulse Resp BP 01/19/21 09:45 83 73 80 01/19/21 09:26 85 17 01/19/21 09:18 98.1 F 85 16 01/19/21 04:49 97.5 F L 67 16 01/19/21 03:21 98.5 F 71 18 01/19/21 03:20 16 01/19/21 02:30 98.0 F 67 16 126/81 01/19/21 01:50 98.2 F 68 16 129/79 01/18/21 23:55 98/80 01/18/21 22:52 97.4 F L 70 18 99/70 BP BP BP Pulse Ox 01/19/21 09:45 118/54 87/53 118/56 01/19/21 09:26 01/19/21 09:18 112/67 98 01/19/21 04:49 128/65 98 01/19/21 03:21 121/64 99 01/19/21 03:20 01/19/21 02:30 97 01/19/21 01:50 98 01/18/21 23:55 01/18/21 22:52 98 Intake and Output 01/18/21 01/19/21 01/19/21 22:59 06:59 14:59 Other: Voiding Method Urinal Urinal Incontinent # Voids 2 # Bowel Movements 0 Weight 76.657 kg 76.657 kg - Constitutional General appearance: cooperative, no acute distress, flat face - EENT Eyes: anicteric sclerae, PERRLA, normal appearance ENT: hearing decreased - Neck Neck: no lymphadenopathy, normal ROM, no other, no rigidity, no stridor, no thyromegaly - Respiratory Respiratory: bilateral: CTA, negative: diminished, dullness, rales, rhonchi - Cardiovascular Rhythm: regular Heart sounds: normal: S1, S2 Abnormal Heart Sounds: no systolic murmur, no diastolic murmur, no rub, no S3 Gallop, no S4 Gallop, no click, no other - Gastrointestinal General gastrointestinal: normal bowel sounds, soft and nontender - Integumentary Integumentary: no rash - Neurologic Neurologic: CNII-XII intact has difficulty following command denies any sensory deficit, strength decreased generally - Musculoskeletal Musculoskeletal: gait could not be assessed, strength equal bilaterally - Psychiatric Psychiatric: A&O x's 1, appropriate affect Results CBC & Chem 7: 01/18/21 23:21 01/19/21 10:51 Labs: Abnormal Lab Results - Last 24 Hours (Table) 01/18/21 01/18/21 01/18/21 Range/Units 22:46 23:21 23:21 WBC 15.6 H (3.8-10.6) k/uL RBC 3.96 L (4.30-5.90) m/uL Hgb 12.9 L (13.0-17.5) gm/dL Neutrophils # 14.0 H (1.3-7.7) k/uL Lymphocytes # 0.8 L (1.0-4.8) k/uL Sodium 136 L (137-145) mmol/L Carbon Dioxide 20 L (22-30) mmol/L BUN 42 H (9-20) mg/dL Creatinine 2.79 H (0.66-1.25) mg/dL Glucose 187 H (74-99) mg/dL POC Glucose (mg/dL) 198 H (75-99) mg/dL Plasma Lactic Acid Fredi (0.7-2.0) mmol/L Creatine Kinase (55-170) U/L Urine Protein (Negative) Urine Bacteria (None) /hpf Urine Mucus (None) /hpf 01/18/21 01/19/21 01/19/21 Range/Units 23:21 10:51 11:52 WBC (3.8-10.6) k/uL RBC (4.30-5.90) m/uL Hgb (13.0-17.5) gm/dL Neutrophils # (1.3-7.7) k/uL Lymphocytes # (1.0-4.8) k/uL Sodium 135 L (137-145) mmol/L Carbon Dioxide (22-30) mmol/L BUN 47 H (9-20) mg/dL Creatinine 2.75 H (0.66-1.25) mg/dL Glucose 118 H (74-99) mg/dL POC Glucose (mg/dL) (75-99) mg/dL Plasma Lactic Acid Fredi 4.0 H* (0.7-2.0) mmol/L Creatine Kinase 273 H (55-170) U/L Urine Protein 1+ H (Negative) Urine Bacteria Rare H (None) /hpf Urine Mucus Rare H (None) /hpf Thrombosis Risk Factor Assmnt - DVT/VTE Prophylaxis DVT/VTE Prophylaxis: Pharmacologic Prophylaxis ordered - Choose All That Apply Any of the Below Risk Factors Present?: Yes Each Factor Represents 1 point: Swollen legs (current) Other Risk Factors: Yes Each Risk Factor Represents 3 Points: Age 75 years or older Other congenital or acquired thrombophilia - If yes, enter type in comment: No Thrombosis Risk Factor Assessment Total Risk Factor Score: 4 Thrombosis Risk Factor Assessment Level: Moderate Risk Assessment and Plan Plan: #1 acute syncope likely vasovagal with orthostatic hypotension noted on the vitals. Hold Maxzide hold Norvasc status post 3 L of IV fluids continue normal saline at 70 mL per hour per nephrology recommendation. echo Cardiogram ordered #2 acute metabolic encephalopathy with concerns for worsening dementia and possible seizure. With the multiple episodes of unresponsiveness. Rule out seizures and EEG ordered. Keppra initiated at 500 twice a day MRI could not be obtained due to history of Karson filter to filter #3 bilateral lower extremity weakness with multiple falls. Thoracic spine MRI 2017 suggestive of gliosis and spinal stenosis. CT thoracic and lumbar spine ordered to rule out fracture or cord compression PTOT consult for possible rehab #4 acute kidney injury likely ATN discontinue Maxzide. Baseline creatinine not known. Rule out chronic kidney disease Status post 3 L IV fluid continue flui ds at 70 mL per hour renal ultrasound ordered #5 history of DVT status post Karson filter not on any anticoagulation #6 history of myasthenia gravis continue Mestinon and Imuran #7 Lewy body dementia with worsening confusion continue Aricept 10 mg daily at bedtime continue Seroquel 50 mg daily at bedtime #8 CODE STATUS no code , code status was discussed in detail with the who stated patient's wishes of being no code #9 DVT prophylaxis heparin every 12 #10 disposition patient to be in the hospital 1-2 inpatient nights. Would need PT OT evaluation for possible rehab placement
--- NOTE | 2021-01-19 20:11 | CT ---
EXAMINATION TYPE: CT thor lumbar spine wo con DATE OF EXAM: 01/19/2021 COMPARISON: CT scan 01/21/2014 and 02/12/2010. HISTORY: Fall, lower extremity weakness CT DLP: 1249.40 mGycm Automated exposure control for dose reduction was used. Images obtained from the level of T1-S1 vertebra without contrast. Thoracic and lumbar vertebra have fairly normal alignment. There is multilevel spondylotic changes in the thoracic and lumbar spine with vacuum disc phenomenon and spur formation. I see no compression f racture. There is no thoracic paraspinal mass. I see no focal bone destruction. There is some facet a rthropathy in the lower lumbar spine with some mild lateral recess stenosis. This is seen at L3-4 and L4-5. The sacroiliac joints are intact. There are sigmoid diverticula. There are renal bilateral par apelvic multiple cysts. There is inferior vena cava filter. There is mild subluxation of L2 to the ri ght of L3 of 5 mm. Unchanged. IMPRESSION: Multilevel spondylotic changes. No fracture seen. No adverse changes compared to old exam.
[2021-01-19] MEDS ORDERED: amLODIPine 5 MG TAB PO SCH (21:00)
[2021-01-19] MEDS: HEPARIN SODIUM,PORCINE 5,000 UNIT/ML 1 ML VIAL SQ SCH (21:09)
[2021-01-19] MEDS: DONEPEZIL 10 MG TAB PO SCH (21:09)
[2021-01-19] MEDS: azaTHIOprine 50 MG TAB PO SCH (21:10)
[2021-01-19] MEDS: QUEtiapine 50 MG TAB PO SCH (21:10)
[2021-01-20] MEDS: PIPERACILLIN-TAZOBACTAM 3.375 GM in SODIUM CHLORIDE 0.9% 100 ML IVPB SCH ×4 (00:08→23:50)
[2021-01-20] MEDS: SODIUM CHLORIDE 0.9% 1,000 ML IV SCH ×2 (00:09→15:01)
--- NOTE | 2021-01-20 07:46 | P.CRDCN ---
History of Present Illness Consult date: 01/20/21 Chief complaint: Syncope History of present illness: This is an 85-year-old gentleman with a past medical history significant for underlying dementia as well as myasthenia gravis we are requested to see as a consult today for further evaluation off loss of consciousness episode. The patient does have severe underlying dementia and he is somewhat poor historian and the history was taken from the chart. Apparently the patient does have poor functional capacity as well. He was sitting on the commode when he was unresponsive for few seconds. No seizure like activity noted. No symptoms of chest pain or chest discomfort. And no feeling of heart racing or fluttering and no prodromal symptoms. The patient was brought to the hospital for further evaluation. When he was in the hospital and orthostatic blood pressure check and that came in to be positive and he was received IV fluid. He was taking diuretics which was held. Computed tomography scan of the head was performed and revealed no acute abnormalities besides small vessel disease. EKG showed nonspecific ST and T wave abnormalities but the underlying rhythm appeared to be junctional rhythm with differential diagnosis of atrial fibrillation. No history of coronary artery disease or congestive heart failure or cardiac arrhythmia. He is known to have chronic renal failure. The echocardiogram revealed normal left ventricular systolic function. Past Medical History Past Medical History: Dementia, Seizure Disorder Additional Past Medical History / Comment(s): tumor on back History of Any Multi-Drug Resistant Organisms: None Reported Past Surgical History: No Surgical Hx Reported Past Anesthesia/Blood Transfusion Reactions: No Reported Reaction Past Psychological History: No Psychological Hx Reported Smoking Status: Never smoker Past Alcohol Use History: None Reported Past Drug Use History: None Reported Medications and Allergies Home Medications Medication Instructions Recorded Confirmed Type Donepezil [Aricept] 10 mg PO HS 01/19/21 01/19/21 History Pyridostigmine [Mestinon] 30 mg PO TID 01/19/21 01/19/21 History QUEtiapine [SEROquel] 50 mg PO HS 01/19/21 01/19/21 History Triamterene-Hctz 37.5-25Mg 1 tab PO DAILY 01/19/21 01/19/21 History [Maxzide 37.5-25] amLODIPine [Norvasc] 5 mg PO BID 01/19/21 01/19/21 History azaTHIOprine [Imuran] 50 mg PO BID 01/19/21 01/19/21 History Allergies Allergy/AdvReac Type Severity Reaction Status Date / Time No Known Allergies Allergy Verified 01/19/21 08:56 Physical Exam Vitals: Vital Signs Temp Pulse Pulse Pulse Resp BP BP 01/20/21 04:07 97.6 F 69 16 01/19/21 20:32 97.9 F 60 16 01/19/21 20:10 16 01/19/21 14:31 97.6 F 80 17 105/64 01/19/21 09:45 83 73 80 118/54 87/53 01/19/21 09:26 85 17 01/19/21 09:18 98.1 F 85 16 BP Pulse Ox 01/20/21 04:07 119/62 98 01/19/21 20:32 121/66 98 01/19/21 20:10 01/19/21 14:31 97 01/19/21 09:45 118/56 01/19/21 09:26 01/19/21 09:18 112/67 98 Intake and Output 01/19/21 01/20/21 01/20/21 22:59 06:59 14:59 Intake Total 350 1200 Output Total 250 250 Balance 100 950 Intake: Intake, IV Titration 350 900 Amount Piperacillin-Tazobactam 3 100 100 .375 gm In Sodium Chloride 0.9% 100 ml @ 25 mls/hr IVPB Q8HR [facility] Rx# :[id number] Sodium Chloride 0.9% 1, 800 000 ml @ 70 mls/hr IV . [id number] [facility] Rx#:[id number] Vancomycin 1,500 mg In 250 Sodium Chloride 0.9% 250 ml @ 125 mls/hr IVPB ONCE ONE Rx#:[id number] Oral 300 Output: Urine 250 250 Other: Voiding Method Urinal # Voids 1 2 - Constitutional General appearance: no acute distress - Respiratory Respiratory: bilateral: CTA - Cardiovascular Rhythm: regular Heart sounds: normal: S1, S2 Abnormal Heart Sounds: systolic murmur Results 01/18/21 23:21 01/19/21 10:51 Comprehensive Metabolic Panel 01/19/21 Range/Units 10:51 Sodium 135 L (137-145) mmol/L Potassium 4.9 (3.5-5.1) mmol/L Chloride 105 (98-107) mmol/L Carbon Dioxide 22 (22-30) mmol/L BUN 47 H (9-20) mg/dL Creatinine 2.75 H (0.66-1.25) mg/dL Glucose 118 H (74-99) mg/dL Calcium 8.8 (8.4-10.2) mg/dL Current Medications Generic Name Dose Route Start Last Admin Trade Name Freq PRN Reason Stop Dose Admin Acetaminophen 650 mg 01/19/21 17:45 Acetaminophen Tab 325 Mg Tab PO Q6HR PRN Fever and/ or Pain Azathioprine 50 mg 01/19/21 21:00 01/19/21 21:10 Azathioprine 50 Mg Tab PO 50 mg BID ALISHA Administration Donepezil HCl 10 mg 01/19/21 21:00 01/19/21 21:09 Donepezil 10 Mg Tab PO 10 mg HS ALISHA Administration Heparin Sodium (Porcine) 5,000 unit 01/19/21 21:00 01/19/21 21:09 Heparin Sodium,Porcine 5,000 Unit/Ml 1 Ml Vial SQ 5,000 unit Q12HR ALISHA Administration Sodium Chloride 1,000 mls @ 70 mls/hr 01/19/21 10:15 01/20/21 00:09 Saline 0.9% IV 70 mls/hr .[id number] ALISHA Administration Piperacillin Sod/Tazobactam 100 mls @ 25 mls/hr 01/19/21 16:00 01/20/21 07:29 Sod 3.375 gm/ Sodium Chloride IVPB 25 mls/hr Q8HR ALISHA Administration Levetiracetam 500 mg 01/19/21 09:00 01/19/21 21:09 Levetiracetam 500 Mg Tab PO 500 mg Q12HR ALISHA Administration Miscellaneous Information 1 each 01/19/21 12:32 Vancomycin Iv Per Pharmacy 1 Each [facility] [place] DIRECTED PRN Per Protocol Naloxone HCl 0.2 mg 01/19/21 01:37 Naloxone 0.4 Mg/Ml 1 Ml Vial IV Q2M PRN Opioid Reversal Ondansetron HCl 4 mg 01/19/21 17:45 Ondansetron 4 Mg/2 Ml Vial IVP Q6HR PRN Nausea And Vomiting Pyridostigmine [place] 30 mg 01/19/21 16:00 01/19/21 21:10 Pyridostigmine 60 Mg Tab PO 30 mg TID ALISHA Administration Quetiapine Fumarate 50 mg 01/19/21 21:00 01/19/21 21:10 Quetiapine 50 Mg Tab PO 50 mg HS ALISHA Administration Intake and Output 01/19/21 01/20/21 01/20/21 22:59 06:59 14:59 Intake Total 350 1200 Output Total 250 250 Balance 100 950 Intake: Intake, IV Titration 350 900 Amount Piperacillin-Tazobactam 3 100 100 .375 gm In Sodium Chloride 0.9% 100 ml @ 25 mls/hr IVPB Q8HR [facility] Rx# :[id number] Sodium Chloride 0.9% 1, 800 000 ml @ 70 mls/hr IV . [id number] [facility] Rx#:[id number] Vancomycin 1,500 mg In 250 Sodium Chloride 0.9% 250 ml @ 125 mls/hr IVPB ONCE ONE Rx#:[id number] Oral 300 Output: Urine 250 250 Other: Voiding Method Urinal # Voids 1 2 01/18/21 23:21 01/19/21 10:51 Assessment and Plan Assessment: Assessment #1 an episode of syncope likely vasovagal with differential of orthostatic hypertension #2 cardiac arrhythmia to be ruled out giving his baseline EKG #3 underlying dementia Plan #1 agree to continue holding the diuretics #2 avoid being aggressive in controlling the blood pressure #3 rule out cardiac arrhythmia. The patient will benefit from event monitor as an outpatient #4 the echo was reviewed and showed normal LV function #5 neurology service is on the case #6 follow-up with the patient
[2021-01-20] MEDS: HEPARIN SODIUM,PORCINE 5,000 UNIT/ML 1 ML VIAL SQ SCH ×2 (08:21→21:42)
[2021-01-20] MEDS: levETIRAcetam 500 MG TAB PO SCH ×2 (08:21→21:42)
[2021-01-20] MEDS: PYRIDOSTIGMINE 60 MG TAB PO SCH ×3 (08:21→21:42)
[2021-01-20] MEDS: azaTHIOprine 50 MG TAB PO SCH ×2 (08:22→21:42)
[2021-01-20 08:39] LABS: ALT 17 U/L (4-49); AST 42 U/L (17-59); African American GFR (CKD) 25 (>60 ml/min/1.73 sqM); Albumin 3.6 g/dL (3.5-5.0); Albumin/Globulin Ratio 1.2; Alkaline Phosphatase 52 U/L (38-126); Anion Gap 9 mmol/L; Blood Urea Nitrogen 49 mg/dL (9-20); Calcium 8.6 mg/dL (8.4-10.2); Carbon Dioxide 19 mmol/L (22-30); Chloride 109 mmol/L (98-107); Globulin 2.9 g/dL; Glucose 89 mg/dL (74-99); Non-African American GFR(CKD) 22 (>60 ml/min/1.73 sqM); Potassium 4.2 mmol/L (3.5-5.1); Sodium 137 mmol/L (137-145); Total Bilirubin 0.8 mg/dL (0.2-1.3); Total Protein 6.5 g/dL (6.3-8.2)
[2021-01-20 08:44] LABS: Vancomycin,Random 11.7 ug/mL
[2021-01-20] MEDS ORDERED: VANCOMYCIN 1,500 MG in SODIUM CHLORIDE 0.9% 250 ML IVPB ONE (11:00)
[2021-01-20 12:07] LABS: African American GFR (CKD) 25.1 (60.0-200.0); Anion Gap 9.8 mmol/L (4.00-12.00); BUN/Creat Ratio 18.85 Ratio (12.00-20.00); Calcium 8.3 mg/dL (8.7-10.3); Carbon Dioxide 23.2 mmol/L (21.6-31.8); Magnesium 2.1 mg/dL (1.5-2.4); Non-African American GFR(CKD) 21.7 (60.0-200.0); Potassium 3.9 mmol/L (3.5-5.5)
[2021-01-20 12:40] LABS: Basophils # (A) 0.04 X 10*3/uL (0.00-0.10); Basophils % (A) 0.3 %; Eosinophils # (A) 0.02 X 10*3/uL (0.04-0.35); Eosinophils % (A) 0.2 %; HCT 31.9 % (39.6-50.0); HGB 10.8 g/dL (13.0-17.0); Lymphocytes # (A) 0.96 X 10*3/uL (0.90-5.00); MCH 33.1 pg (27.0-32.0); MCHC 33.9 g/dL (32.0-37.0); MCV 97.9 fL (80.0-97.0); Mean Platelet Volume 10.1 fL (9.5-12.2); Monocytes # (A) 1.28 X 10*3/uL (0.20-1.00); Monocytes % (A) 10.7 %; Neutrophils # (A) 9.57 X 10*3/uL (1.80-7.70); Neutrophils % (A) 80.3 %; Platelet Count 183 X 10*3/uL (140-440); RBC 3.26 X 10*6/uL (4.40-5.60); RDW 13.5 % (11.5-14.5); WBC 11.93 X 10*3/uL (4.50-10.00)
--- NOTE | 2021-01-20 14:11 | P.PN ---
Subjective Progress Note Date: 01/20/21 Principal diagnosis: Syncope, acute metabolic encephalopathy, bilateral lower extremity weakness with multiple falls, myasthenia gravis, Parkinson disease, acute kidney injury, his tory of deep venous thrombosis. 85 years old male patient of Dr. Lr with past medical history of your body dementia, history of seizure, myasthenia gravis comes in with increased weakness and multiple falls for the past few days. According to the patient is getting more confused and unable to do his ADLs as the days go by. He uses a walker on every day basis but is noticeable more week. Patient was brought in as he became unresponsive while sitting on the commode. No seizu re-like activity noted. Patient's and daughter are unable to lift patient or moving around the house as the episodes of unresponsiveness has increased over the past few days. She also notices that patient has not been eating or drinking much lately. Patient was diagnosed with myasthenia gravis in in 2013 at [facility] there patient apparently was also diagnosed with DVT and a Inman filter was also placed. Patient is currently not on any blood thinner. She was scheduled to have an MRI to [facility] on January 22. On evaluation today patient is unable to provide any history he seems distracted in the conversation and does not remember any incidence of falling. Earlier this morning patient was being transferred to the bedside commode to check orthostatics in the process patient will was found to be awake but not responding with his head propped backwards incident lasted 20 seconds and patient was noted to be significantly orthostatic. Patient received 3 L of IV fluid in the ER and IV fluids were continued at 125 mL per hour. Labs suggestive sodium 136 bicarb 20 BUN 42 creatinine 2.79 no baseline creatinine unknown lactic acid on admission for improved to 1.3 troponin [address] head was done to suggest hypertrophy and chronic small vessel ischemia with progression. EKG was undetermined rhythm with left anterior vascular block nonspecific T-wave abnormality. MRI of thoracic spine on March 2017 did show multiple sick moderate to severe canal stenosis with gliosis within the cord at the level of T10 to T11. Patient was seen by neurology and plan to do EEG to rule out seizures. MRI was ordered but could not be completed as patient has Inman filter. Nephrology saw the patient decrease her fluids to 70 mL per hour 01/20: Patient is doing slightly better was having an EEG of the time, he knows where he was and why was at the time, does not have any recollection to what happened exactly yesterday but he knows he had an event and he wasn't totally out with it at the time. According to the recollection from family and neurology with he had most likely was syncopal episode as a vasovagal less likely to be seizure even seizure still been in a workup currently. Continue current management with titrate PTOT patient is hemodynamically better and stable today. Objective - Vital Signs Vital signs: Vital Signs Temp 97.7 F 01/20/21 12:28 Pulse 88 01/20/21 12:28 Resp 16 01/20/21 12:28 BP 156/79 01/20/21 12:28 Pulse Ox 98 01/20/21 12:28 Intake & Output 01/19/21 01/20/21 01/20/21 18:59 06:59 18:59 Intake Total 350 1200 318 Output Total 100 400 300 Balance 250 800 18 Intake: Intake, IV Titration 350 900 Amount Piperacillin-Tazobactam 3 100 100 .375 gm In Sodium Chloride 0.9% 100 ml @ 25 mls/hr IVPB Q8HR [facility] Rx# :[id number] Sodium Chloride 0.9% 1, 800 000 ml @ 70 mls/hr IV . [id number] [facility] Rx#:[id number] Vancomycin 1,500 mg In 250 Sodium Chloride 0.9% 250 ml @ 125 mls/hr IVPB ONCE ONE Rx#:[id number] Oral 300 318 Output: Urine 100 400 300 Other: Voiding Method Urinal Urinal Diaper Incontinent # Voids 2 - Exam Review of systems: CONSTITUTIONAL: Well-developed no acute respiratory distress. EYES: No icterus sclerae, no conjunctivitis. EARS, NOSE, MOUTH, THROAT, and FACE: No sore throat, lymphadenopathy, carotid bruits or deformity. RESPIRATORY: No SOB cough or wheezes. CARDIOVASCULAR: No CP, Palpitation, PND, Orthopnea, or angina. GASTROINTESTINAL: No Abd pain, Nausea or vomiting, no Diarrhea or constipation, No GI Bleed, no distention or masses. GENITOURINARY: Negative for Hematuria or UTI, no kidney stones. INTEGUMENT/BREAST: Negative for any muscular injury with mild osteoarthritis.. HEMATOLOGIC/LYMPHATIC: Negative for bleed or purpura. MUSCULOSKELTAL: Negative for Myalgia or arthralgia. Mild lower back pain NEURLOGICAL: Had syncope yesterday, history of myasthenia gravis, history of Parkinson mild abnormal balance and gait. BEHAVIORAL/PSYCH: Negative. ENDOCRINE: Negative. Physical examinations: General Appearance: Alert, cooperative, no distress, appears stated age. Neck HEENT: Supple, no lymphadenopathy, no thyroid enlargement, no carotid bruits. Lungs: Clear to auscultation without crackles or wheezes no rhonchi, no deformity. Chest Wall: Chest wall normal expansion with deep inspiration no tenderness and no deformity was found on exam, no costochondral pain or discomfort. Heart: Regular rate and rhythm, S1, S2 normal, no murmur, rub or gallop. Back: Mild scoliosis L-spine discomfort. Abdomen: Soft, non-tender, bowel sounds active all four quadrants, no masses, no organomegaly. Extremities: Extremities normal, atraumatic, no cyanosis trace edema. Pulses: 2+ and symmetric. Skin: Skin color, texture, tugor normal, no rashes or lesions. Neurologic: Alert oriented with slight confusion cranial nerves II through XII intact, positive generalized weakness past abnormal gait imbalance with mild tremor. - Labs CBC & Chem 7: 01/20/21 06:50 01/20/21 06:50 Labs: Abnormal Lab Results - Last 24 Hours (Table) 01/20/21 01/20/21 01/20/21 Range/Units 06:50 06:50 06:50 WBC 11.93 H (4.50-10.00) X 10*3/uL RBC 3.26 L (4.40-5.60) X 10*6/uL Hgb 10.8 L (13.0-17.0) g/dL Hct 31.9 L (39.6-50.0) % MCV 97.9 H (80.0-97.0) fL MCH 33.1 H (27.0-32.0) pg Immature Gran # 0.06 H (0.00-0.04) X 10*3/uL Neutrophils # 9.57 H (1.80-7.70) X 10*3/uL Monocytes # 1.28 H (0.20-1.00) X 10*3/uL Eosinophils # 0.02 L (0.04-0.35) X 10*3/uL Chloride 109 H (98-107) mmol/L Carbon Dioxide 19 L (22-30) mmol/L BUN 49.0 H 49 H (9.0-27.0) mg/dL Creatinine 2.6 H 2.59 H (0.6-1.5) mg/dL Est GFR (CKD-EPI)AfAm 25.1 L (60.0-200.0) Est GFR (CKD-EPI)NonAf 21.7 L (60.0-200.0) Calcium 8.3 L (8.7-10.3) mg/dL Assessment and Plan Assessment: #1 acute syncope likely vasovagal with orthostatic hypotension noted on the vitals. Hold Maxzide hold Norvasc status post 3 L of IV fluids continue normal saline at 70 mL per hour per nephrology recommendation. echo Cardiogram ordered #2 acute metabolic encephalopathy with concerns for worsening dementia and possible seizure. With the multiple episodes of unresponsiveness. Rule out seizures and EEG ordered. Keppra initiated at 500 twice a day MRI could not be done because of his Inman filter. #3 bilateral lower extremity weakness with multiple falls. Thoracic spine MRI 2017 suggestive of gliosis and spinal stenosis. CT thoracic and lumbar spine or dered to rule out fracture or cord compression PTOT consult for possible rehab #4 acute kidney injury likely ATN discontinue Maxzide. Baseline creatinine not known. Rule out chronic kidney disease Status post 3 L IV fluid continue fluids at 70 mL per hour renal ultrasound ordered #5 history of DVT status post [place] filter not on any anticoagulation #6 history of myasthenia gravis continue Mestinon and Imuran #7 Lewy body dementia with worsening confusion continue Aricept 10 mg daily at bedtime continue Seroquel 50 mg daily at bedtime #8 CODE STATUS no code , code status was discussed in detail with the who stated patient's wishes of being no code #9 DVT prophylaxis heparin every 12 # discharge planning: Titrate physical therapy and prepare hopefully for discharge home on Friday or if patient require subacute rehab at all depend on how well he does with physical therapy
--- NOTE | 2021-01-20 14:43 | P.PN ---
Subjective Progress Note Date: 01/20/21 Patient was seen in his room and he was sitting in a chair. Per the patient nurse today he is doing much better. Patient denies of any headaches, any focal weakness or visual disturbance. Patient had orthostatic vitals yesterday around 945 and his supine is 118/56 with a heart rate of 83; sitting is 118/54 with a heart rate of 73 and standing is 87/53 with a heart rate of 80. I spoke with the primary attending and he stated that the patient has history of mitral gravis and the he was diagnosed about 7 years ago. Objective - Vital Signs Vital signs: Vital Signs Temp 97.7 F 01/20/21 12:28 Pulse 88 01/20/21 12:28 Resp 16 01/20/21 12:28 BP 156/79 01/20/21 12:28 Pulse Ox 98 01/20/21 12:28 Intake & Output 01/19/21 01/20/21 01/20/21 18:59 06:59 18:59 Intake Total 350 1200 318 Output Total 100 400 300 Balance 250 800 18 Intake: Intake, IV Titration 350 900 Amount Piperacillin-Tazobactam 3 100 100 .375 gm In Sodium Chloride 0.9% 100 ml @ 25 mls/hr IVPB Q8HR [facility] Rx# :[id number] Sodium Chloride 0.9% 1, 800 000 ml @ 70 mls/hr IV . [id number] [facility] Rx#:[id number] Vancomycin 1,500 mg In 250 Sodium Chloride 0.9% 250 ml @ 125 mls/hr IVPB ONCE ONE Rx#:[id number] Oral 300 318 Output: Urine 100 400 300 Other: Voiding Method Urinal Urinal Diaper Incontinent # Voids 2 - Exam GENERAL: The patient is lying in bed and is not in acute distress. NEUROLOGICAL: Higher mental function: The patient is awake, alert, oriented to self. He stated that he was in high school. Could not tell me the year. Patient is able to name objects correctly (cup, watch and pen). Patient is following simple commands and more promptly compared to yesterday. No aphasia or neglect. Cranial nerves: The pupils are round, equal and reactive to light. Visual dong are full to confrontation. Extraocular movement is intact no nystagmus is noted. It seems patient has exopthamolos on the right eye. Facial sensation is normal to touch throughout. The facial strength is normal throughout. Hearing is moderated decreased bilaterally to hand rub. No dysarthria is noted. Rest of cranial nerves could not be assessed because of patient cooperation. Motor: Gait is deferred. The strength is 5/5 throughout bilateral upper extremities and moving bilateral lower extremities above gravity without focality. Normal tone and bulk. Cerebellum: Normal finger to nose bilaterally. Sensation: Sensation is normal to touch throughout. Reflexes (right/left): brachioradialis are 3+ bilaterally, ankles are 1+, otherwise 2+ throughout. Plantars are downgoing bilaterally. - Labs CBC & Chem 7: 01/20/21 06:50 01/20/21 06:50 Labs: Abnormal Lab Results - Last 24 Hours (Table) 01/20/21 01/20/21 01/20/21 Range/Units 06:50 06:50 06:50 WBC 11.93 H (4.50-10.00) X 10*3/uL RBC 3.26 L (4.40-5.60) X 10*6/uL Hgb 10.8 L (13.0-17.0) g/dL Hct 31.9 L (39.6-50.0) % MCV 97.9 H (80.0-97.0) fL MCH 33.1 H (27.0-32.0) pg Immature Gran # 0.06 H (0.00-0.04) X 10*3/uL Neutrophils # 9.57 H (1.80-7.70) X 10*3/uL Monocytes # 1.28 H (0.20-1.00) X 10*3/uL Eosinophils # 0.02 L (0.04-0.35) X 10*3/uL Chloride 109 H (98-107) mmol/L Carbon Dioxide 19 L (22-30) mmol/L BUN 49.0 H 49 H (9.0-27.0) mg/dL Creatinine 2.6 H 2.59 H (0.6-1.5) mg/dL Est GFR (CKD-EPI)AfAm 25.1 L (60.0-200.0) Est GFR (CKD-EPI)NonAf 21.7 L (60.0-200.0) Calcium 8.3 L (8.7-10.3) mg/dL Assessment and Plan Assessment: This is an 85-year-old gentleman that presented to the emergency department on 01/18/2021 for suspected seizure. The patient was in the bathroom using a commode and then he became unresponsiveness. According to the family he's been having these episodes for the last 3 months and had workup at the [facility] and he was scheduled for MRI on 01/22/2021 Syncopal episode (for the past 3 month): This recent episode seemed possible vasovagal. As well has orthostatic hypotension. Cannot rule out seizure. History of Seizure (according to ED medical history) but unsure if truly was diagnosed with seizure or not History of myasthenia gravis that was diagnosed about 7 years ago Thoracic spondylosis (T10 and T11 and likely gliosis on previous MRI thoracic on 04/22/2017) Dementia (not sure for how long and type of demenita he was diagnosed with) LISS on CKI Plan: I ordered a routine EEG and is pending. I started the patient prophylactically on Keppra 500 mg 1 tablet twice a day on 01/20/2021 since it is reported that he has history of seizure. -Was notified that the patient cannot get MRI since the patient has a Green filter and he needs a 1.5 Lillian rather than a 3 Lillian. -Per the patient's nurse he had an EEG on 01/15/2021 at [facility] (since of syncopal episodes) and it is reported as abnormal EEG due to showed encephalopathy due to metabolic. There are no focal slowing, perform discharges or seizure in the EEG. Per the patient nurse does not mention the degree of encephalopathy. -Patient has history of myasthenia gravis (per the primary team and diagnosed about 7 years ago). Is currently on Mestinon 30 mg is continued as well as disease on Imuran 50 mg 1 tablet twice a day. 2-D echo was reported as mild concentric left ventricular hypertrophy. Ejection fraction of 50-55%. Left atrium is moderately dilated. -CT thoracic and lumbar is ordered by the primary team because of falls and lower extremity weakness and it's reported as multilevel spondylitic changes. No fracture seen. No adverse changes compared to old exam. Orthostatic vitals are positive yesterday. I notified the nurse to repeat them today. If there remained to be the positive consider salt tablets versus Midodrine versus Florinef. Cardiology is on board and if they continue to be positive we'll speak to the cardiology team regarding best management. Continue cardiac monitoring Urinalysis: Is negative for urinary tract infection CK level: 273 (mildly elevated and does not seem concerning from neurology perspective). TSH:2.07 (normal). Vitamin B12 is 716 which is normal. Folate level is pending Nephrology team are on board. Will defer the rest of medical management to the primary team. Claude Garcia M.D. Neuro-hospitalist Time with Patient: Less than 30
--- NOTE | 2021-01-20 15:21 | PN ---
PROGRESS NOTE Patient is seen for followup for acute kidney injury. Patient's renal function has improved. He is currently awake, comfortable. Denies any significant complaints. PHYSICAL EXAMINATION: Blood pressure is 119/62, heart rate of 69 per minute, he is afebrile. Examination of the heart S1, S2. Examination of the lungs, bilateral breath sounds are heard. Abdomen is soft, nontender. Examination of lower extremities shows no significant edema. 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 LAB: Show sodium 137, potassium 4.2, chloride 109. CO2 is 19, BUN 49, creatinine 2.59. ASSESSMENT: 1. Acute kidney injury, mostly prerenal associated with hypotension, currently improving, maintained on IV fluids. 2. Possible chronic kidney disease stage 3 previous creatinine 1.38 in 2017 mostly nephrosclerosis as etiology. 3. Hypertension with chronic kidney disease currently controlled. 4. Possible seizures started on Keppra, being followed by Neurology. 5. Metabolic acidosis associated with acute kidney injury, lactic acidosis. PLAN: Continue with IV fluids and repeat labs in a.m. Continue to avoid nephrotoxic agents. Encourage increased oral intake. MMODL / IJN: [id number] /
--- NOTE | 2021-01-20 17:00 | EEG ---
ELECTROENCEPHALOGRAM REPORT DATE OF SERVICE: 01/20/2021. CLINICAL HISTORY: This is an 85-year-old gentleman who presented for a syncopal episodes. This video EEG is obtained to evaluate for seizure and epileptiform activity. Relevant medication is Keppra. EEG FINDINGS: A routine 21 channel EEG is performed with video using the 10/20 electrode position placement system. DESCRIPTION: Wakefulness and drowsiness are obtained. During wakefulness, the background consists of 5-6 hertz moderate voltage theta activity. During drowsiness, there is slowing and attenuation of the background activity. There is no physiological stage 2 sleep. There is no focal slowing. Interictal and ictal: None. ACTIVATION PROCEDURE: Photic stimulation did not evoke a posterior driving response. Hyperventilation is not performed. CLINICAL INTERPRETATION: This is an abnormal routine EEG. The background slowing is suggestive of moderate encephalopathy. There are no focal slowing, epileptiform discharges or seizure on the EEG. Clinical correlation is recommended. MMBELGICA / SAMRAN: [id number] / MTDD
[2021-01-20] MEDS: DONEPEZIL 10 MG TAB PO SCH (21:42)
[2021-01-20] MEDS: QUEtiapine 50 MG TAB PO SCH (21:42)
[2021-01-21] MEDS: SODIUM CHLORIDE 0.9% 1,000 ML IV SCH (05:58)
[2021-01-21 06:25] LABS: ALT 21 U/L (4-49); AST 55 U/L (17-59); African American GFR (CKD) 30 (>60 ml/min/1.73 sqM); Albumin 3.5 g/dL (3.5-5.0); Albumin/Globulin Ratio 1.2; Alkaline Phosphatase 50 U/L (38-126); Anion Gap 8 mmol/L; Blood Urea Nitrogen 45 mg/dL (9-20); Calcium 8.5 mg/dL (8.4-10.2); Carbon Dioxide 18 mmol/L (22-30); Chloride 111 mmol/L (98-107); Globulin 2.9 g/dL; Glucose 103 mg/dL (74-99); Non-African American GFR(CKD) 26 (>60 ml/min/1.73 sqM); Potassium 4.1 mmol/L (3.5-5.1); Sodium 137 mmol/L (137-145); Total Bilirubin 0.7 mg/dL (0.2-1.3); Total Protein 6.4 g/dL (6.3-8.2)
[2021-01-21 06:30] LABS: Vancomycin,Random 17.4 ug/mL
[2021-01-21] MEDS: PIPERACILLIN-TAZOBACTAM 3.375 GM in SODIUM CHLORIDE 0.9% 100 ML IVPB SCH (07:05)
[2021-01-21] MEDS: ACETAMINOPHEN TAB 325 MG TAB PO PRN (08:24)
[2021-01-21] MEDS: HEPARIN SODIUM,PORCINE 5,000 UNIT/ML 1 ML VIAL SQ SCH ×2 (08:24→21:45)
[2021-01-21] MEDS: levETIRAcetam 500 MG TAB PO SCH ×2 (08:24→21:45)
[2021-01-21] MEDS: azaTHIOprine 50 MG TAB PO SCH ×2 (08:24→21:45)
[2021-01-21] MEDS: PYRIDOSTIGMINE 60 MG TAB PO SCH ×3 (08:25→21:43)
[2021-01-21] MEDS ORDERED: VANCOMYCIN 1,500 MG in SODIUM CHLORIDE 0.9% 250 ML IVPB ONE (09:00)
[2021-01-21 09:12] LABS: Basophils # (A) 0.05 X 10*3/uL (0.00-0.10); Basophils % (A) 0.5 %; Eosinophils # (A) 0.06 X 10*3/uL (0.04-0.35); Eosinophils % (A) 0.6 %; HCT 31.9 % (39.6-50.0); HGB 10.6 g/dL (13.0-17.0); Lymphocytes # (A) 1.11 X 10*3/uL (0.90-5.00); Lymphocytes % (A) 10.2 %; MCH 32.4 pg (27.0-32.0); MCHC 33.2 g/dL (32.0-37.0); MCV 97.6 fL (80.0-97.0); Mean Platelet Volume 10.3 fL (9.5-12.2); Monocytes # (A) 1.22 X 10*3/uL (0.20-1.00); Monocytes % (A) 11.2 %; Neutrophils # (A) 8.41 X 10*3/uL (1.80-7.70); Platelet Count 144 X 10*3/uL (140-440); RBC 3.27 X 10*6/uL (4.40-5.60); RDW 13.7 % (11.5-14.5)
--- NOTE | 2021-01-21 10:28 | P.PN ---
Subjective Progress Note Date: 01/21/21 Principal diagnosis: Syncope, acute metabolic encephalopathy, bilateral lower extremity weakness with multiple falls, myasthenia gravis, Parkinson disease, acute kidney injury, his tory of deep venous thrombosis. 85 years old male patient of Dr. Lr with past medical history of your body dementia, history of seizure, myasthenia gravis comes in with increased weakness and multiple falls for the past few days. According to the patient is getting more confused and unable to do his ADLs as the days go by. He uses a walker on every day basis but is noticeable more week. Patient was brought in as he became unresponsive while sitting on the commode. No seizu re-like activity noted. Patient's and daughter are unable to lift patient or moving around the house as the episodes of unresponsiveness has increased over the past few days. She also notices that patient has not been eating or drinking much lately. Patient was diagnosed with myasthenia gravis in in 2013 at there patient apparently was also diagnosed with DVT and a Rome filter was also placed. Patient is currently not on any blood thinner. She was scheduled to have an MRI to [facility] on January 22. On evaluation today patient is unable to provide any history he seems distracted in the conversation and does not remember any incidence of falling. Earlier this morning patient was being transferred to the bedside commode to check orthostatics in the process patient will was found to be awake but not responding with his head propped backwards incident lasted 20 seconds and patient was noted to be significantly orthostatic. Patient received 3 L of IV fluid in the ER and IV fluids were continued at 125 mL per hour. Labs suggestive sodium 136 bicarb 20 BUN 42 creatinine 2.79 no baseline creatinine unknown lactic acid on admission for improved to 1.3 troponin [address] head was done to suggest hypertrophy and chronic small vessel ischemia with progression. EKG was undetermined rhythm with left anterior vascular block nonspecific T-wave abnormality. MRI of thoracic spine on March 2017 did show multiple sick moderate to severe canal stenosis with gliosis within the cord at the level of T10 to T11. Patient was seen by neurology and plan to do EEG to rule out seizures. MRI was ordered but could not be completed as patient has Rome filter. Nephrology saw the patient decrease her fluids to 70 mL per hour 01/20: Patient is doing slightly better was having an EEG of the time, he knows where he was and why was at the time, does not have any recollection to what happened exactly yesterday but he knows he had an event and he wasn't totally out with it at the time. According to the recollection from family and neurology with he had most likely was syncopal episode as a vasovagal less likely to be seizure even seizure still been in a workup currently. Continue current management with titrate PTOT patient is hemodynamically better and stable today. 01/21: Patient is doing slightly but better, his results from echocardiogram and EEG are back no sign of seizure activity echocardiogram did not show any major thrombus or abnormality. To my surprise patient was on vancomycin and Zosyn since admission no sign of infection clearly was found, Dr. Sexton I believe was thinking about treating aspiration pneumonia not knowing the circumstances with both antibiotic will be stopped today we'll repeat portable chest x-ray today. Patient mobility still significantly limited at this point we'll address with the family whether patient is able to go home will require subacute rehab to work with occupational therapy will be valuable as a next help for assessment. Objective - Vital Signs Vital signs: Vital Signs Temp 98.3 F 01/21/21 06:00 Pulse 82 01/21/21 06:00 Resp 17 01/21/21 06:00 BP 133/66 01/21/21 06:00 Pulse Ox 97 01/21/21 06:00 Intake & Output 01/20/21 01/21/21 01/21/21 18:59 06:59 18:59 Intake Total 558 Output Total 300 Balance 258 Intake: Oral 558 Output: Urine 300 Other: Voiding Method Diaper Diaper Incontinent Incontinent # Voids 3 3 - Exam Review of systems: CONSTITUTIONAL: Well-developed no acute respiratory distress. EYES: No icterus sclerae, no conjunctivitis. EARS, NOSE, MOUTH, THROAT, and FACE: No sore throat, lymphadenopathy, carotid bruits or deformity. RESPIRATORY: No SOB cough or wheezes. CARDIOVASCULAR: No CP, Palpitation, PND, Orthopnea, or angina. GASTROINTESTINAL: No Abd pain, Nausea or vomiting, no Diarrhea or constipation, No GI Bleed, no distention or masses. GENITOURINARY: Negative for Hematuria or UTI, no kidney stones. INTEGUMENT/BREAST: Negative for any muscular injury with mild osteoarthritis.. HEMATOLOGIC/LYMPHATIC: Negative for bleed or purpura. MUSCULOSKELTAL: Negative for Myalgia or arthralgia. Mild lower back pain NEURLOGICAL: Had syncope yesterday, history of myasthenia gravis, history of Parkinson mild abnormal balance and gait. BEHAVIORAL/PSYCH: Negative. ENDOCRINE: Negative. Physical examinations: General Appearance: Alert, cooperative, no distress, appears stated age. Neck HEENT: Supple, no lymphadenopathy, no thyroid enlargement, no carotid bruits. Lungs: Clear to auscultation without crackles or wheezes no rhonchi, no deformity. Chest Wall: Chest wall normal expansion with deep inspiration no tenderness and no deformity was found on exam, no costochondral pain or discomfort. Heart: Regular rate and rhythm, S1, S2 normal, no murmur, rub or gallop. Back: Mild scoliosis L-spine discomfort. Abdomen: Soft, non-tender, bowel sounds active all four quadrants, no masses, no organomegaly. Extremities: Extremities normal, atraumatic, no cyanosis trace edema. Pulses: 2+ and symmetric. Skin: Skin color, texture, tugor normal, no rashes or lesions. Neurologic: Alert oriented with slight confusion cranial nerves II through XII intact, positive generalized weakness past abnormal gait imbalance with mild tremor. - Labs CBC & Chem 7: 01/21/21 05:56 01/21/21 05:56 Labs: Abnormal Lab Results - Last 24 Hours (Table) 01/20/21 01/20/21 01/21/21 Range/Units 06:50 06:50 05:56 WBC 11.93 H 10.90 H (4.50-10.00) X 10*3/uL RBC 3.26 L 3.27 L (4.40-5.60) X 10*6/uL Hgb 10.8 L 10.6 L (13.0-17.0) g/dL Hct 31.9 L 31.9 L (39.6-50.0) % MCV 97.9 H 97.6 H (80.0-97.0) fL MCH 33.1 H 32.4 H (27.0-32.0) pg Immature Gran # 0.06 H 0.05 H (0.00-0.04) X 10*3/uL Neutrophils # 9.57 H 8.41 H (1.80-7.70) X 10*3/uL Monocytes # 1.28 H 1.22 H (0.20-1.00) X 10*3/uL Eosinophils # 0.02 L (0.04-0.35) X 10*3/uL Chloride (98-107) mmol/L Carbon Dioxide (22-30) mmol/L BUN 49.0 H (9.0-27.0) mg/dL Creatinine 2.6 H (0.6-1.5) mg/dL Est GFR (CKD-EPI)AfAm 25.1 L (60.0-200.0) Est GFR (CKD-EPI)NonAf 21.7 L (60.0-200.0) Glucose (74-99) mg/dL Calcium 8.3 L (8.7-10.3) mg/dL 01/21/21 Range/Units 05:56 WBC (4.50-10.00) X 10*3/uL RBC (4.40-5.60) X 10*6/uL Hgb (13.0-17.0) g/dL Hct (39.6-50.0) % MCV (80.0-97.0) fL MCH (27.0-32.0) pg Immature Gran # (0.00-0.04) X 10*3/uL Neutrophils # (1.80-7.70) X 10*3/uL Monocytes # (0.20-1.00) X 10*3/uL Eosinophils # (0.04-0.35) X 10*3/uL Chloride 111 H (98-107) mmol/L Carbon Dioxide 18 L (22-30) mmol/L BUN 45 H (9.0-27.0) mg/dL Creatinine 2.24 H (0.6-1.5) mg/dL Est GFR (CKD-EPI)AfAm (60.0-200.0) Est GFR (CKD-EPI)NonAf (60.0-200.0) Glucose 103 H (74-99) mg/dL Calcium (8.7-10.3) mg/dL Assessment and Plan Assessment: #1 acute syncope likely vasovagal with orthostatic hypotension noted on the vitals. Hold Maxzide hold Norvasc status post 3 L of IV fluids continue normal saline at 70 mL per hour per nephrology recommendation. echo Cardiogram did not show any major abnormality, patient is cleared from cardiology standpoint and believe this is vasovagal mostly, also neurology review his EKG in the rest of the testing and believe this is more vasovagal then seizure activity or any neurologic related problem. #2 acute metabolic encephalopathy with concerns for worsening dementia and possible seizure. With the multiple episodes of unresponsiveness. Rule out seizures and EEG ordered. Keppra initiated at 500 twice a day MRI could not be done because of his Rome filter. Despite the acute encephalopathy no sign of infection was found to be blamed on the reason why patient had mental status change, patient will be taking of vancomycin and Zosyn no sign of aspiration pneumonia was found at this point. #3 bilateral lower extremity weakness with multiple falls. Thoracic spine MRI 2016 suggestive of gliosis and spinal stenosis. CT thoracic and lumbar spine ordered to rule out fracture or cord compression PTOT consult for possible rehab #4 acute kidney injury likely ATN discontinue Maxzide. Baseline creatinine not known. Rule out chronic kidney disease Status post 3 L IV fluid continue fluids at 70 mL per hour renal ultrasound ordered #5 history of DVT status post Karson filter not on any anticoagulation #6 history of myasthenia gravis continue Mestinon and Imuran #7 Lewy body dementia patient is not having any sign and symptom consistent with it although still been treated for dementia with Aricept and Seroquel but he does not show any of the sinuses and symptom of fluid body this point. #8 CODE STATUS no code , code status was discussed in detail with the who stated patient's wishes of being no code #9 DVT prophylaxis heparin every 12 # discharge planning: Titrate physical therapy and prepare hopefully for discharge home on Friday or if patient require subacute rehab at all depend on how well he does with physical therapy
--- NOTE | 2021-01-21 10:51 | XR ---
EXAMINATION TYPE: XR chest 1V portable DATE OF EXAM: 01/21/2021 HISTORY: Shortness of breath. COMPARISON: 01/18/2021 TECHNIQUE: Single view of the chest is submitted. FINDINGS: Demonstrated are scattered senescent parenchymal change. There is no evidence for focal infiltrate. The heart is stable. Hilar and mediastinal structures are within normal limits. Degenerative changes are seen of the dorsal spine. IMPRESSION: 1. Chronic changes without evidence for acute pulmonary disease.
--- NOTE | 2021-01-21 11:03 | P.PN ---
Subjective Progress Note Date: 01/21/21 Principal diagnosis: Syncope This is a pleasant 85-year-old gentleman who was admitted to the hospital with syncope. He was found to be orthostatic positive. He was receiving diuretics which was held. Also he was on amlodipine which was held as well. The patient seen this morning. He does have severe underlying dementia and he is very poor historian. Both the diuretics and amlodipine continues to be on hold. The blood pressure continues to be stable. No indication that the patient was experiencing any other symptoms like chest pain or chest discomfort. During his hospital stay he underwent an echocardiogram which revealed normal left ventricular systolic function. No arrhythmias noted overnight. Objective - Vital Signs Vital signs: Vital Signs Temp 98.3 F 01/21/21 06:00 Pulse 82 01/21/21 06:00 Resp 17 01/21/21 06:00 BP 133/66 01/21/21 06:00 Pulse Ox 97 01/21/21 06:00 Intake & Output 01/20/21 01/21/21 01/21/21 18:59 06:59 18:59 Intake Total 558 Output Total 300 Balance 258 Intake: Oral 558 Output: Urine 300 Other: Voiding Method Diaper Diaper Incontinent Incontinent # Voids 3 3 - Constitutional General appearance: Present: no acute distress - Respiratory Respiratory: bilateral: CTA - Cardiovascular Rhythm: regular - Labs CBC & Chem 7: 01/21/21 05:56 01/21/21 05:56 Labs: Abnormal Lab Results - Last 24 Hours (Table) 01/20/21 01/20/21 01/21/21 Range/Units 06:50 06:50 05:56 WBC 11.93 H 10.90 H (4.50-10.00) X 10*3/uL RBC 3.26 L 3.27 L (4.40-5.60) X 10*6/uL Hgb 10.8 L 10.6 L (13.0-17.0) g/dL Hct 31.9 L 31.9 L (39.6-50.0) % MCV 97.9 H 97.6 H (80.0-97.0) fL MCH 33.1 H 32.4 H (27.0-32.0) pg Immature Gran # 0.06 H 0.05 H (0.00-0.04) X 10*3/uL Neutrophils # 9.57 H 8.41 H (1.80-7.70) X 10*3/uL Monocytes # 1.28 H 1.22 H (0.20-1.00) X 10*3/uL Eosinophils # 0.02 L (0.04-0.35) X 10*3/uL Chloride (98-107) mmol/L Carbon Dioxide (22-30) mmol/L BUN 49.0 H (9.0-27.0) mg/dL Creatinine 2.6 H (0.6-1.5) mg/dL Est GFR (CKD-EPI)AfAm 25.1 L (60.0-200.0) Est GFR (CKD-EPI)NonAf 21.7 L (60.0-200.0) Glucose (74-99) mg/dL Calcium 8.3 L (8.7-10.3) mg/dL 01/21/21 Range/Units 05:56 WBC (4.50-10.00) X 10*3/uL RBC (4.40-5.60) X 10*6/uL Hgb (13.0-17.0) g/dL Hct (39.6-50.0) % MCV (80.0-97.0) fL MCH (27.0-32.0) pg Immature Gran # (0.00-0.04) X 10*3/uL Neutrophils # (1.80-7.70) X 10*3/uL Monocytes # (0.20-1.00) X 10*3/uL Eosinophils # (0.04-0.35) X 10*3/uL Chloride 111 H (98-107) mmol/L Carbon Dioxide 18 L (22-30) mmol/L BUN 45 H (9.0-27.0) mg/dL Creatinine 2.24 H (0.6-1.5) mg/dL Est GFR (CKD-EPI)AfAm (60.0-200.0) Est GFR (CKD-EPI)NonAf (60.0-200.0) Glucose 103 H (74-99) mg/dL Calcium (8.7-10.3) mg/dL Assessment and Plan Assessment: Assessment #1 an episode of syncope likely vasovagal with differential of orthostatic hypertension #2 cardiac arrhythmia to be ruled out giving his baseline EKG #3 underlying dementia Plan #1 continue holding the diuretics and amlodipine #2 continue monitor for arrhythmia #3 from the cardiac standpoint overview will follow-up with the patient on when necessary case
--- NOTE | 2021-01-21 14:32 | PN ---
PROGRESS NOTE Patient is seen for followup for acute kidney injury. Renal function continues to improve with creatinine down to 2.2 today from 2.79 at peak. Prior creatinine was 1.38 in 2017. This morning patient is comfortable, awake. He is not in any acute distress. PHYSICAL EXAMINATION: Blood pressure was 133/66, heart rate 80 per minute, patient is afebrile. examination of the heart S1, S2. Examination of the lungs, bilateral breath sounds are heard. Abdomen is soft, nontender. Examination of lower extremities shows no significant edema. LAB: Show sodium of 137, potassium 4.1, chloride 111. CO2 is 18, BUN 45, creatinine 2.24, hemoglobin 10.6 g/dL. ASSESSMENT: 1. Acute kidney injury, currently improving, mostly prerenal and associated with hypotension. Patient is maintained on IV fluids. 2. 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 3. Possible seizures, maintained on Keppra, being followed by Neurology. 4. Metabolic acidosis associated with renal failure and lactic acidosis and from IV fluids. I will switch the IV fluids to Ringer lactate. 5. History of myasthenia gravis, maintained on Imuran and Mestinon. PLAN: Change IV fluids to Ringer lactate. Add oral sodium bicarb if metabolic acidosis is not improved. MMODL / IJN: [id number] /
[2021-01-21] MEDS: LACTATED RINGERS 1,000 ML IV SCH (15:04)
[2021-01-21] MEDS: QUEtiapine 50 MG TAB PO SCH (21:45)
[2021-01-21] MEDS: DONEPEZIL 10 MG TAB PO SCH (21:45)
[2021-01-22] MEDS: LACTATED RINGERS 1,000 ML IV SCH ×2 (03:39→17:06)
[2021-01-22 05:14] VITALS: RESP 16
[2021-01-22 09:16] LABS: Basophils # (A) 0.05 X 10*3/uL (0.00-0.10); Basophils % (A) 0.5 %; Eosinophils # (A) 0.04 X 10*3/uL (0.04-0.35); Eosinophils % (A) 0.4 %; HCT 31.1 % (39.6-50.0); Lymphocytes # (A) 0.74 X 10*3/uL (0.90-5.00); Lymphocytes % (A) 7.1 %; MCH 31.6 pg (27.0-32.0); MCHC 32.2 g/dL (32.0-37.0); MCV 98.4 fL (80.0-97.0); Mean Platelet Volume 10.1 fL (9.5-12.2); Monocytes # (A) 1.14 X 10*3/uL (0.20-1.00); Monocytes % (A) 10.9 %; Neutrophils % (A) 80.6 %; Platelet Count 156 X 10*3/uL (140-440); RBC 3.16 X 10*6/uL (4.40-5.60); RDW 13.7 % (11.5-14.5); WBC 10.42 X 10*3/uL (4.50-10.00)
[2021-01-22] MEDS: ACETAMINOPHEN TAB 325 MG TAB PO PRN ×2 (09:19→15:15)
[2021-01-22] MEDS: azaTHIOprine 50 MG TAB PO SCH (09:20)
[2021-01-22] MEDS: PYRIDOSTIGMINE 60 MG TAB PO SCH ×2 (09:20→15:15)
[2021-01-22] MEDS: HEPARIN SODIUM,PORCINE 5,000 UNIT/ML 1 ML VIAL SQ SCH (09:22)
[2021-01-22 09:36] LABS: African American GFR (CKD) 39.2 (60.0-200.0); Albumin 3.4 g/dL (3.80-4.90); Albumin/Globulin Ratio 1.48 (1.60-3.17); Anion Gap 9.4 mmol/L (4.00-12.00); BUN/Creat Ratio 19.44 Ratio (12.00-20.00); Calcium 8.1 mg/dL (8.7-10.3); Carbon Dioxide 21.6 mmol/L (21.6-31.8); Globulin 2.3 g/dL (1.6-3.3); Non-African American GFR(CKD) 33.8 (60.0-200.0); Potassium 3.7 mmol/L (3.5-5.5); Total Bilirubin 0.7 mg/dL (0.3-1.2); Total Protein 5.7 g/dL (6.2-8.2); Vancomycin,Random 26.8 ug/mL (0.0-40.0)
--- NOTE | 2021-01-22 09:54 | P.DS ---
Providers Date of admission: 01/20/21 09:10 Attending physician: Nellie Sexton MD Consults: 01/19/21 01:40 Consult Physician Routine Consulting Provider: Claude Garcia Consult Reason/Comments: seizure Do you want consulting provider notified?: Yes 01/19/21 01:46 Consult Physician Routine Consulting Provider: Reilly Laguerre Consult Reason/Comments: Acute kidney injury Do you want consulting provider notified?: Yes Primary care physician: [facility] Course: Principal diagnosis: Syncope, acute metabolic encephalopathy, bilateral lower extremity weakness with multiple falls, myasthenia gravis, Parkinson disease, acute kidney injury, history of deep venous thrombosis. 85 years old male patient of Dr. Lr with past medical history of your body dementia, history of seizure, myasthenia gravis comes in with increased weakness and multiple falls for the past few days. According to the patient is getting more confused and unable to do his ADLs as the days go by. He uses a walker on every day basis but is noticeable more week. Patient was brought in as he became unresponsive while sitting on the commode. No seizure-like activity noted. Patient's and daughter are unable to lift patient or moving around the house as the episodes of unresponsiveness has increased over the past few days. She also notices that patient has not been eating or drinking much lately. Patient was diagnosed with myasthenia gravis in in 2013 at [facility] there patient apparently was also diagnosed with DVT and a Troy filter was also placed. Patient is currently not on any blood thinner. She was scheduled to have an MRI to [facility] on January 22. On evaluation today patient is unable to provide any history he seems distracted in the conversation and does not remember any incidence of falling. Earlier this morning patient was being transferred to the bedside commode to check orthostatics in the process patient will was found to be awake but not responding with his head propped backwards incident lasted 20 seconds and patient was noted to be significantly orthostatic. Patient received 3 L of IV fluid in the ER and IV fluids were continued at 125 mL per hour. Labs suggestive sodium 136 bicarb 20 BUN 42 creatinine 2.79 no baseline creatinine unknown lactic acid on admission for improved to 1.3 troponin [address] head was done to suggest hypertrophy and chronic small vessel ischemia with progression. EKG was undetermined rhythm with left anterior vascular block nonspecific T-wave abnormality. MRI of thoracic spine on March 2017 did show multiple sick moderate to severe canal stenosis with gliosis within the cord at the level of T10 to T11. Patient was seen by neurology and plan to do EEG to rule out seizures. MRI was ordered but could not be completed as patient has Troy filter. Nephrology saw the patient decrease her fluids to 70 mL per hour 01/20: Patient is doing slightly better was having an EEG of the time, he knows where he was and why was at the time, does not have any recollection to what happened exactly yesterday but he knows he had an event and he wasn't totally out with it at the time. According to the recollection from family and neurology with he had most likely was syncopal episode as a vasovagal less likely to be seizure even seizure still been in a workup currently. Continue current management with titrate PTOT patient is hemodynamically better and stable today. 01/21: Patient is doing slightly but better, his results from echocardiogram and EEG are back no sign of seizure activity echocardiogram did not show any major thrombus or abnormality. To my surprise patient was on vancomycin and Zosyn since admission no sign of infection clearly was found, Dr. Sexton I believe was thinking about treating aspiration pneumonia not knowing the circumstances with both antibiotic will be stopped today we'll repeat portable chest x-ray today. Patient mobility still significantly limited at this point we'll address with the family whether patient is able to go home will require subacute rehab to work with occupational therapy will be valuable as a next help for assessment. Objective - Vital Signs Vital signs: Vital Signs Temp 98.3 F 01/21/21 06:00 Pulse 82 01/21/21 06:00 Resp 17 01/21/21 06:00 BP 133/66 01/21/21 06:00 Pulse Ox 97 01/21/21 06:00 Intake & Output 01/20/21 01/21/21 01/21/21 18:59 06:59 18:59 Intake Total 558 Output Total 300 Balance 258 Intake: Oral 558 Output: Urine 300 Other: Voiding Method Diaper Diaper Incontinent Incontinent # Voids 3 3 - Exam Review of systems: CONSTITUTIONAL: Well-developed no acute respiratory distress. EYES: No icterus sclerae, no conjunctivitis. EARS, NOSE, MOUTH, THROAT, and FACE: No sore throat, lymphadenopathy, carotid bruits or deformity. RESPIRATORY: No SOB cough or wheezes. CARDIOVASCULAR: No CP, Palpitation, PND, Orthopnea, or angina. GASTROINTESTINAL: No Abd pain, Nausea or vomiting, no Diarrhea or constipation, No GI Bleed, no distention or masses. GENITOURINARY: Negative for Hematuria or UTI, no kidney stones. INTEGUMENT/BREAST: Negative for any muscular injury with mild osteoarthritis.. HEMATOLOGIC/LYMPHATIC: Negative for bleed or purpura. MUSCULOSKELTAL: Negative for Myalgia or arthralgia. Mild lower back pain NEURLOGICAL: Had syncope yesterday, history of myasthenia gravis, history of Parkinson mild abnormal balance and gait. BEHAVIORAL/PSYCH: Negative. ENDOCRINE: Negative. Physical examinations: General Appearance: Alert, cooperative, no distress, appears stated age. Neck HEENT: Supple, no lymphadenopathy, no thyroid enlargement, no carotid bruits. Lungs: Clear to auscultation without crackles or wheezes no rhonchi, no deformity. Chest Wall: Chest wall normal expansion with deep inspiration no tenderness and no deformity was found on exam, no costochondral pain or discomfort. Heart: Regular rate and rhythm, S1, S2 normal, no murmur, rub or gallop. Back: Mild scoliosis L-spine discomfort. Abdomen: Soft, non-tender, bowel sounds active all four quadrants, no masses, no organomegaly. Extremities: Extremities normal, atraumatic, no cyanosis trace edema. Pulses: 2+ and symmetric. Skin: Skin color, texture, tugor normal, no rashes or lesions. Neurologic: Alert oriented with slight confusion cranial nerves II through XII intact, positive generalized weakness past abnormal gait imbalance with mild tremor. - Labs CBC & Chem 7: 01/21/21 05:56 01/21/21 05:56 Labs: Abnormal Lab Results - Last 24 Hours (Table) 01/20/21 01/20/21 01/21/21 Range/Units 06:50 06:50 05:56 WBC 11.93 H 10.90 H (4.50-10.00) X 10*3/uL RBC 3.26 L 3.27 L (4.40-5.60) X 10*6/uL Hgb 10.8 L 10.6 L (13.0-17.0) g/dL Hct 31.9 L 31.9 L (39.6-50.0) % MCV 97.9 H 97.6 H (80.0-97.0) fL MCH 33.1 H 32.4 H (27.0-32.0) pg Immature Gran # 0.06 H 0.05 H (0.00-0.04) X 10*3/uL Neutrophils # 9.57 H 8.41 H (1.80-7.70) X 10*3/uL Monocytes # 1.28 H 1.22 H (0.20-1.00) X 10*3/uL Eosinophils # 0.02 L (0.04-0.35) X 10*3/uL Chloride (98-107) mmol/L Carbon Dioxide (22-30) mmol/L BUN 49.0 H (9.0-27.0) mg/dL Creatinine 2.6 H (0.6-1.5) mg/dL Est GFR (CKD-EPI)AfAm 25.1 L (60.0-200.0) Est GFR (CKD-EPI)NonAf 21.7 L (60.0-200.0) Glucose (74-99) mg/dL Calcium 8.3 L (8.7-10.3) mg/dL 01/21/21 Range/Units 05:56 WBC (4.50-10.00) X 10*3/uL RBC (4.40-5.60) X 10*6/uL Hgb (13.0-17.0) g/dL Hct (39.6-50.0) % MCV (80.0-97.0) fL MCH (27.0-32.0) pg Immature Gran # (0.00-0.04) X 10*3/uL Neutrophils # (1.80-7.70) X 10*3/uL Monocytes # (0.20-1.00) X 10*3/uL Eosinophils # (0.04-0.35) X 10*3/uL Chloride 111 H (98-107) mmol/L Carbon Dioxide 18 L (22-30) mmol/L BUN 45 H (9.0-27.0) mg/dL Creatinine 2.24 H (0.6-1.5) mg/dL Est GFR (CKD-EPI)AfAm (60.0-200.0) Est GFR (CKD-EPI)NonAf (60.0-200.0) Glucose 103 H (74-99) mg/dL Calcium (8.7-10.3) mg/dL Assessment and Plan Assessment: #1 acute syncope likely vasovagal with orthostatic hypotension noted on the vitals. Hold Maxzide hold Norvasc status post 3 L of IV fluids continue normal saline at 70 mL per hour per nephrology recommendation. echo Cardiogram did not show any major abnormality, patient is cleared from cardiology standpoint and believe this is vasovagal mostly, also neurology review his EKG in the rest of the testing and believe this is more vasovagal then seizure activity or any neurologic related problem. #2 acute metabolic encephalopathy with concerns for worsening dementia and possible seizure. With the multiple episodes of unresponsiveness. Rule out seizures and EEG ordered. Keppra initiated at 500 twice a day MRI could not be done because of his Troy filter. Despite the acute encephalopathy no sign of infection was found to be blamed on the reason why patient had mental status change, patient will be taking of vancomycin and Zosyn no sign of aspiration pneumonia was found at this point. #3 bilateral lower extremity weakness with multiple falls. Thoracic spine MRI 2017 suggestive of gliosis and spinal stenosis. CT thoracic and lumbar spine ordered to rule out fracture or cord compression PTOT consult for possible rehab #4 acute kidney injury likely ATN discontinue Maxzide. Baseline creatinine not known. Rule out chronic kidney disease Status post 3 L IV fluid continue fluids at 70 mL per hour renal ultrasound ordered #5 history of DVT status post Karson filter not on any anticoagulation #6 history of myasthenia gravis continue Mestinon and Imuran #7 Lewy body dementia patient is not having any sign and symptom consistent with it although still been treated for dementia with Aricept and Seroquel but he does not show any of the sinuses and symptom of fluid body this point. #8 CODE STATUS no code , code status was discussed in detail with the who stated patient's wishes of being no code #9 DVT prophylaxis heparin every 12 # discharge planning: Titrate physical therapy and prepare hopefully for discharge home on Friday or if patient require subacute rehab at all depend on how well he does with physical therapy Hospital course: Patient mental status has cleared significantly, no further seizure, cardiology and neurology workup came to be negative for any major abnormality and neurology agreed to keep patient on Keppra 500 mg twice a day precaution for seizure. No sign of Lewy body dementia was found at this point patient is doing well, patient is doing slightly better with PTOT and his blood pressures not throbbing down anymore, was well hydrated his blood pressure is not dropping down his pulse rate is not tachycardic at this point. Medication are well adjusted patient will be transferred to subacute rehab at this point for physical therapy for the next 2 weeks to improve his mobility and safety for him and his . Patient is stable for discharge today. Patient Condition at Discharge: Poor Plan - Discharge Summary Discharge Rx Participant: No New Discharge Prescriptions: New levETIRAcetam [Keppra] 500 mg PO Q12HR #60 tab Acetaminophen Tab [Tylenol] 650 mg PO Q6HR PRN tab PRN Reason: Fever And/ Or Pain Continue amLODIPine [Norvasc] 5 mg PO BID azaTHIOprine [Imuran] 50 mg PO BID Donepezil [Aricept] 10 mg PO HS Pyridostigmine [Mestinon] 30 mg PO TID Triamterene-Hctz 37.5-25Mg [Maxzide 37.5-25] 1 tab PO DAILY QUEtiapine [SEROquel] 50 mg PO HS Discharge Medication List Donepezil [Aricept] 10 mg PO HS 01/19/21 [History] Pyridostigmine [Mestinon] 30 mg PO TID 01/19/21 [History] QUEtiapine [SEROquel] 50 mg PO HS 01/19/21 [History] Triamterene-Hctz 37.5-25Mg [Maxzide 37.5-25] 1 tab PO DAILY 01/19/21 [History] amLODIPine [Norvasc] 5 mg PO BID 01/19/21 [History] azaTHIOprine [Imuran] 50 mg PO BID 01/19/21 [History] Acetaminophen Tab [Tylenol] 650 mg PO Q6HR PRN tab 01/22/21 [Rx] levETIRAcetam [Keppra] 500 mg PO Q12HR #60 tab 01/22/21 [Rx] Follow up Appointment(s)/Referral(s): Charles Lr MD [Primary Care Provider] - 1-2 days Discharge Disposition: TRANSFER TO SNF/ECF
[2021-01-22] MEDS: levETIRAcetam 500 MG TAB PO SCH (10:07)
[2021-01-22 11:58] VITALS: BP 135/68; PULSE 74; TEMP 97.7
--- NOTE | 2021-01-22 15:00 | PN ---
PROGRESS NOTE Patient is seen for followup for acute kidney injury. Renal function has improved. Patient is currently without any complaints. Serum creatinine down to 1.8 mg/dL. PHYSICAL EXAMINATION: On examination today, blood pressure is 167/82, heart rate 91 per minute, he is afebrile. Examination of the heart S1, S2. Examination of the lungs, bilateral breath sounds are heard. Abdomen is soft, nontender. Examination of lower extremities shows no evidence of edema. [employer]IST exam grossly intact. LAB: Show sodium of 141, potassium 3.7, chloride 110, BUN 35, creatinine 1.8, hemoglobin 10.0 g/dL. ASSESSMENT: 1. Acute kidney injury, currently improved, mostly prerenal. 2. Underlying chronic kidney disease with baseline creatinine 1.38 in 2017 mostly nephrosclerosis stage IIIB. 3. Metabolic acidosis secondary to renal failure and lactic acidosis, now improved. 4. History of myasthenia gravis maintained on Imuran and Mestinon. PLAN: Patient is stable for discharge from nephrology standpoint. Follow up as outpatient. MMODL / IJN: [id number] /
== END 2021-01-22 18:02 ==
LOC: EC 22:35 → 5NMEDONC 01-19 01:38 → INTOOBSV 01-20 09:10 → OBSVTOIN 01-20 09:10 → UNDODISIN 01-22 18:02
PROVIDERS: ADMIT Internal Medicine; ATTEND Internal Medicine
DX: I95.1 Orthostatic hypotension (principal); G93.41 Metabolic encephalopathy; E87.2 Acidosis; N17.9 Acute kidney failure, unspecified; I44.4 Left anterior fascicular block; G31.83 Neurocognitive disorder with Lewy bodies; F02.80 Dementia in other diseases classified elsewhere, unspecified severity, without behavioral disturbance, psychotic disturbance, mood disturbance, and anxiety; G70.00 Myasthenia gravis without (acute) exacerbation; I12.9 Hypertensive chronic kidney disease with stage 1 through stage 4 chronic kidney disease, or unspecified chronic kidney disease; M48.04 Spinal stenosis, thoracic region; M47.814 Spondylosis without myelopathy or radiculopathy, thoracic region; G40.909 Epilepsy, unspecified, not intractable, without status epilepticus; R29.6 Repeated falls; R26.9 Unspecified abnormalities of gait and mobility; I67.89 Other cerebrovascular disease; Z20.822 Contact with and (suspected) exposure to COVID-19; Z79.899 Other long term (current) drug therapy; Z95.828 Presence of other vascular implants and grafts; Z86.718 Personal history of other venous thrombosis and embolism
CPT/HCPCS: 96361 ×4; 96365; 96366 ×3; 96367; 96372 ×4; 99285; 36415; 95819; 93005; 97162; 97166; 82747; 80053 ×4; 80048 ×2; 84443; 82607; 82550; 83605 ×2; 83735 ×2; 84484; 85025 ×4; 81001; 80202 ×3; 87635; 71045 ×2; 76770; 72128; 72131; 70450; G0378 ×4; C8929; G0480; J7500 ×4; J2543 ×3; J3370 ×3; J1644 ×4; J0696; Q9950; 80320; 93306; 96360